=== PATIENT | female | born 1940 | race Caucasian/White ===

== ENCOUNTER 2017-11-11 21:53 | Emergency (ER) | payer OTHER ==
[~2017-11-11] VITALS: Ht 160 cm; Wt 53.5 kg
--- NOTE | ~2017-11-11 | EKG ---
[place] [address] [facility] [place] [address] ELECTROCARDIOGRAM REPORT Name: SYLVIA BLANCO [id number] Admission: 11/11/17 Attend Phys: Discharge: 11/11/17 Date of : 38 Report #: [id number] THIS REPORT FOR: //name// [facility] ED Test Date: 2017-11-11 Test Time: 22:25:09 Pat Name: SYLVIA BLANCO Department: Room: Gender: F Paint Department Supervisor: JOSE : 1940 Requested By: Jn Abraham Order Number: [id number] MD: Mikey Conley Measurements Intervals [place] Rate: 76 P: [place]: QRS: -21 QRSD: 96 T: 213 QT: 328 QTc: 369 Interpretive Statements Atrial fibrillation Ventricular premature complex Nonspecific ST and T wave abnormality Baseline wander in lead(s) III,aVL Compared to ECG 11/02/2013 09:20:32 Ventricular premature complex(es) now present nonspecific change in the ST and T-wave segments Electronically Signed On 11-12-2017 10:33:18 CDT by Mikey Conley [email or web address] <ELECTRONICALLY SIGNED> By: Mikey Conley MD, [facility] 11/12/17 1033 2225 2225 Mikey Conley MD, [facility] /EPI
[~2017-11-11 21:53] MED LIST: ALPRAZOLAM 0.50.5 M1 PO; AZITHROMYCIN 2250 MG PO; CARVEDILOL3.125 MG; CEPHALEXIN 500500 M1 PO; COUMADIN 2 MG TA2 M1 PO; COUMADIN 4 MG TA4 M1 PO; COZAAR100 MG PO; CRESTOR10 MG PO; DILTIAZEM 24HR180 M2 PO; DILTIAZEM 24HR180 MG; DUONEB 2.5-0.5 M3 ML IH; HYDROCHLOROTH12.5 MG PO; KLOR-CON 1010 MEQ PO; OCUVITE TABLET1 EAC1 PO; PEPCID20 MG PO; PROAIR HFA8.5 GM IH; PROAIR HFA8.5 GM INH; XALATAN2.5 ML OP
[2017-11-11 22:38] LABS: URINE BILIRUBIN NEGATIVE (Negative); URINE BLOOD 2+ (Negative); URINE CLARITY SL CLOUDY; URINE COLOR YELLOW; URINE GLUCOSE-RANDOM* NEGATIVE (Negative); URINE KETONES 1+ (Negative); URINE LEUKOCYTES 2+ (Negative); URINE NITRITE NEGATIVE (Negative); URINE PROTEIN (DIPSTICK) TRACE (Negative); URINE UROBILINOGEN 0.2 E.U./dl (0.2-1.0)
[2017-11-11 22:39] LABS: ABSOLUTE NEUTROPHILS 8.9 thou/uL (1.4-8.2); BASOPHILS 0.3 % (0.0-2.0); EOSINOPHILS 0.2 % (0.0-3.0); HEMATOCRIT 37.4 % (37.0-47.0); HEMOGLOBIN 12.7 gm/dL (12.0-15.0); LYMPHOCYTES 2.1 % (24.0-44.0); MCH 29.4 pg (26.0-34.0); MCV 86.5 fL (80.0-100.0); PLATELET COUNT 207 thou/uL (150-400); POLYS 90.4 % (36.0-66.0); RBC 4.32 mil/uL (4.20-5.00); WBC 9.8 thou/uL (4.0-11.0)
[2017-11-11 22:53] LABS: ANION GAP 9 mmol/L (7-16); BUN 16 mg/dL (7-18); CALCIUM 8.7 mg/dL (8.5-10.1); CHLORIDE 100 mmol/L (98-107); CO2 24 mmol/L (21-32); GLUCOSE 219 mg/dL (74-106); POTASSIUM 3.1 mmol/L (3.5-5.1); SODIUM 133 mmol/L (136-145)
[2017-11-11 22:59] LABS: CRYSTALS None Seen /LPF (None Seen); SQUAMOUS 4-10 Moderate /LPF (0-3)
[2017-11-11 23:00] LABS: BACTERIA 1-9 Few /HPF (None Seen); HYALINE CASTS 0-3 Few /LPF (None Seen); URINE RBC 0-2 Rare /HPF (0-2); WBC CLUMPS Rare (None Seen)
[2017-11-11 23:02] LABS: TROPONIN-I < 0.04 ng/mL (<0.06)
[2017-11-11] MEDS ORDERED: KLOR-CON20 ME1 PO (23:33)
== END 2017-11-11 23:58 | disposition home or self-care (01) ==
LOC: ER 21:53
PROVIDERS: Nurse Practitioner
DX: N39.0 Urinary tract infection, site not specified (principal); E87.6 Hypokalemia; I10 Essential (primary) hypertension; Z88.2 Allergy status to sulfonamides

== ENCOUNTER 2018-09-06 19:09 | Emergency (ER) | payer OTHER ==
[~2018-09-06] VITALS: Ht 160 cm; Wt 54.4 kg
[~2018-09-06 19:09] MED LIST changes: +KLOR-CON20 ME1 PO
[2018-09-06 20:26] LABS: HEMOGLOBIN 8.6 gm/dL (12.0-15.0); MCV 87.1 fL (80.0-100.0)
[2018-09-06 20:29] LABS: HEMATOCRIT 24.1 % (37.0-47.0); MCHC 35.5 g/dL (28.0-37.0); PLATELET COUNT 115 thou/uL (150-400); RBC 2.76 mil/uL (4.20-5.00); RDW 21.4 % (10.5-14.5)
[2018-09-06 20:33] LABS: WBC 1.7 thou/uL (4.0-11.0)
[2018-09-06 20:33] LABS: URINE BILIRUBIN NEGATIVE (Negative); URINE BLOOD 2+ (Negative); URINE CLARITY CLEAR; URINE COLOR YELLOW; URINE GLUCOSE-RANDOM* NEGATIVE (Negative); URINE KETONES NEGATIVE (Negative); URINE LEUKOCYTES-REFLEX 3+ (Negative); URINE NITRITE-REFLEX NEGATIVE (Negative); URINE PROTEIN (DIPSTICK) TRACE (Negative); URINE UROBILINOGEN 0.2 E.U./dl (0.2-1.0)
[2018-09-06 20:39] LABS: CALCIUM 8.6 mg/dL (8.5-10.1); CREATININE 0.5 mg/dL (0.6-1.0); POTASSIUM 3.7 mmol/L (3.5-5.1)
[2018-09-06 20:42] LABS: AMORPHOUS PHOSPHATES Many /LPF (None Seen); COARSE GRANULAR CASTS 0-3 Few /LPF (None Seen); MUCUS 0-3 Light strn/LPF (None Seen); SQUAMOUS >10 Many /LPF (0-3); WBC CLUMPS Few (None Seen)
[2018-09-06 20:46] LABS: ALBUMIN 2.4 g/dL (3.4-5.0); TOTAL BILIRUBIN 0.7 mg/dL (<0.1-1.0)
[2018-09-06 21:00] LABS: ABSOLUTE NEUTROPHILS 1.2 thou/uL (1.4-8.2)
[2018-09-06 21:01] LABS: ANISOCYTOSIS 2+
[2018-09-06 21:02] LABS: PLATELET ESTIMATE DECREASED; POLYCHROMASIA OCCASIONAL
[2018-09-06] MEDS ORDERED: LEVAQUIN 500 M500 M1 PO (21:02)
[2018-09-06 22:09] VITALS: BP 157/53
--- NOTE | 2018-09-07 08:18 | EKG ---
[place] [address] [facility] [address] ELECTROCARDIOGRAM REPORT Name: SYLVIA BLANCO Room #: [facility]#: [id number] Admission: 09/06/18 Attend Phys: Discharge: 09/06/18 Date of : 38 Report #: [id number] THIS REPORT FOR: //name// [facility] ED Test Date: 2018-09-06 Test Time: 19:44:32 Pat Name: SYLVIA BLANCO Department: Room: Gender: F Outcomes Specialist: FRED : 1940 Requested By: Tyler Guevara Order Number: [id number] MD: Mikey Conley Measurements Intervals [place] Rate: 91 P: [place]: QRS: -18 QRSD: 85 T: 55 QT: 341 QTc: 420 Interpretive Statements Atrial fibrillation Poor R wave progression Compared to ECG 11/11/2017 22:25:09 Myocardial infarct finding now present Ventricular premature complex(es) no longer present ST (T wave) deviation no longer present Electronically Signed On 09-07-2018 8:17:52 SOILS TECHNICIAN by Mikey Conley [email or web address] <ELECTRONICALLY SIGNED> By: Mikey Conley MD, [facility] 09/07/18 [id number] Mikey Conley MD, [facility] /EPI
== END 2018-09-06 22:10 | disposition home or self-care (01) ==
LOC: ER 19:09
PROVIDERS: Emergency Medicine
DX: N39.0 Urinary tract infection, site not specified (principal); I10 Essential (primary) hypertension; R06.02 Shortness of breath; F41.9 Anxiety disorder, unspecified; Z95.5 Presence of coronary angioplasty implant and graft; Z85.89 Personal history of malignant neoplasm of other organs and systems; Z88.2 Allergy status to sulfonamides; Z88.8 Allergy status to other drugs, medicaments and biological substances

== ENCOUNTER 2018-11-10 20:59 | Inpatient (IN) | payer OTHER ==
[~2018-11-10] VITALS: Ht 160 cm; Wt 53.8 kg
[~2018-11-10 20:59] MED LIST changes: +LEVAQUIN 500 M500 M1 PO
[2018-11-10 21:01] VITALS: BP 187/136
[2018-11-10 22:23] LABS: URINE BILIRUBIN NEGATIVE (Negative); URINE BLOOD 1+ (Negative); URINE CLARITY CLEAR; URINE COLOR YELLOW; URINE GLUCOSE-RANDOM* NEGATIVE (Negative); URINE KETONES NEGATIVE (Negative); URINE NITRITE-REFLEX NEGATIVE (Negative); URINE PROTEIN (DIPSTICK) NEGATIVE (Negative); URINE SPECIFIC GRAVITY 1.015 (1.005-1.035); URINE UROBILINOGEN 0.2 E.U./dl (0.2-1.0)
[2018-11-10 22:27] LABS: URINE LEUKOCYTES-REFLEX 1+ (Negative)
[2018-11-10 22:31] LABS: BACTERIA-REFLEX >30 Many /HPF (None Seen); CASTS None Seen /LPF (None Seen); CRYSTALS None Seen /LPF (None Seen); MUCUS None Seen strn/LPF (None Seen); SQUAMOUS None Seen /LPF (0-3); URINE RBC 3-10 Few /HPF (0-2); URINE WBC-REFLEX 6-15 Few /HPF (0-5)
[2018-11-10 22:41] LABS: HEMATOCRIT 33.5 % (37.0-47.0); HEMOGLOBIN 11.4 gm/dL (12.0-15.0); MCH 29.5 pg (26.0-34.0); MCHC 33.9 g/dL (28.0-37.0); MCV 86.9 fL (80.0-100.0); PLATELET COUNT 255 thou/uL (150-400); RBC 3.86 mil/uL (4.20-5.00); RDW 13.8 % (10.5-14.5); WBC 12.4 thou/uL (4.0-11.0)
[2018-11-10 22:57] LABS: ANION GAP 7 mmol/L (7-16); BUN 22 mg/dL (7-18); CALCIUM 9.3 mg/dL (8.5-10.1); CHLORIDE 94 mmol/L (98-107); CO2 30 mmol/L (21-32); CREATININE 0.6 mg/dL (0.6-1.0); GLUCOSE 135 mg/dL (74-106); POTASSIUM 3.6 mmol/L (3.5-5.1); SODIUM 131 mmol/L (136-145)
[2018-11-10 23:06] LABS: ALBUMIN 2.9 g/dL (3.4-5.0); MAGNESIUM 1.4 mg/dL (1.8-2.4); SGOT 21 U/L (15-37); SGPT 27 U/L (30-65); TOTAL BILIRUBIN 0.4 mg/dL (<0.1-1.0); TOTAL PROTEIN 6.8 g/dL (6.4-8.2); TROPONIN-I <0.06 ng/mL (<0.06)
[2018-11-10 23:35] LABS: LARGE PLATELETS OCCASIONAL
[2018-11-11] VITALS (10 sets, daily range): BP systolic 125–187; BP diastolic 54–87
--- NOTE | 2018-11-11 04:50 | NUR ---
PT ARRIVED FROM ED 0130. PT ALERT AND ORIENTED. ASSESSMENT AND ADMISSION COMPLETE. PT DENIES N/V AT THIS TIME. PT REPORTS PAIN IN BACK, SEE EMAR. L CHEST LANETTE CATH DRESSING C/D/I. PEG TUBE IN PLACE AND FLUSHED. VSS. PT CALL LIGHT AND PERSONAL BELONINGS WITHIN REACH. WILL CONTINUE POC UNTIL EOS.
--- NOTE | 2018-11-11 08:36 | EKG ---
[address] [address] ELECTROCARDIOGRAM REPORT Name: SYLVIA BLANCO Room #: 352-P ADM IN M.R.#: [id number] ������������������ Admission: 11/11/18 ������������������ Attend Phys: Sergey Zuñiga MD Discharge: ������������������ Date of : 38 Report #: [id number] ����������������������������������������������������������������� [id number] THIS REPORT FOR: //name// [facility] ED Test Date: 2018-11-10 Test Time: 21:49:31 Pat Name: SYLVIA BLANCO Department: Room: [facility] Gender: F Ocean Freight Agent: KARLY : 1940 Requested By: Aylin Lima Order Number: [id number] MD: Shaun Pierce Measurements Intervals [place] Rate: 104 P: [place]: QRS: -27 QRSD: 86 T: 38 QT: 346 QTc: 455 Interpretive Statements Atrial fibrillation Ventricular premature complex Borderline left axis deviation Anterior infarct, old Compared to ECG 09/06/2018 19:44:32 Ventricular premature complex(es) now present Myocardial infarct finding now present Poor R-wave progression no longer present Electronically Signed On 11-11-2018 8:36:12 CDT by Shaun Pierce [email or web address] ��������������������������������������������� <ELECTRONICALLY SIGNED> ���������������������������������������� By: Shaun Pierce MD ��������������������������������������������� 11/11/18 0836 [id number] [id number] Shaun Pierce MD /EPI
--- NOTE | 2018-11-11 10:41 | NUR ---
ASSESSMENT: CM REVIEWED CHART AND MET WITH PATIENT AT THE BEDSIDE. PT WAS ADMITTED DUE TO UTI. PT REPORTS SHE LIVES IN A HOUSE ALONE BUT STATES SHE HAS RECENTLY BEEN STAYING WITH HER DAUGHTER JOVANI WHO CAN HELP TAKE CARE OF HER. PT REPORTS SHE USES A CANE AND WALKER FOR AMBULATION. PT REPORTS SHE PLANS ON STAYING WITH JOVANI AT DISCHARGE. PT REPORTS JOVANI HELPS HER WITH SHOWERS AND HAS A GRAB BAR AND SHOWER CHAIR. PT REPORTS SHE RECENTLY WAS IN SERVICES WITH [facility] BUT IS NO LONGER. CM DISCUSSED ROLE. PT/OT EVALS STILL PENDING. IF PATIENT IS NEEDING HH PATIENT AND HER DAUGHTER PREFER TO USE [facility] AGAIN. CM SPOKE WITH PATIENTS DAUGHTER JOVANI WHO SHE LIVES WITH AND UPDATED WITH INFORMATION. CM WILL CONTINUE TO FOLLOW TO ASSIST NEEDED.
[2018-11-11 11:48] LABS: INR 2.1; PROTIME 22.1 Seconds (9.3-11.4)
--- NOTE | 2018-11-11 14:59 | NUR ---
Nutrition: Pt s usual tube feeding regimen is bolus 4 cans Isosource 1.5/day. Hospital equivalent is Jevity 1.5, agree with 4 cans/daily to meet needs. REC 200 mL H20 bolus following each can.
--- NOTE | 2018-11-11 19:51 | NUR ---
PT ALERT AND ORIENTED TIMES FOUR. VSS, 97%RA. C/O PAIN MEDICATIONS GIVEN PER PEG THIS EVENING. PT UP TO BSC WITH ASSIST OF TWO. PT REFUSED VIDEO SWALLOW TODAY. FAMILY AT BEDSIDE. WILL CONTINUE TO MONITOR.
--- NOTE | 2018-11-12 02:36 | NUR ---
FOLLOWING POC WITH IVPB ANTIBIOTICS. PT UP TO BSC X2 ASSIST, PT VERY WEAK AND WOBBLING. LEAD CAREGIVER MADE PT NPO UNTIL VIDEO SWALLOW STUDY DONE, WHILE PT IS TRYING EVERYWAY TO GET SOMETHING TO DRINK ORALLY. CONSULTED LEAD CAREGIVER AGAIN TO SEE IF IT IS ALRIGHT TO PT OWN TUBE FEEDING CANS OF ISO 1.5. PT IS STILL CONFUSED AND FLAT EFFECT. HOURLY ROUNDING.
[2018-11-12 04:47] VITALS: BP 145/68
[2018-11-12 07:18] LABS: HEMATOCRIT 31.3 % (37.0-47.0); HEMOGLOBIN 10.7 gm/dL (12.0-15.0); MCH 29.8 pg (26.0-34.0); MCHC 34.1 g/dL (28.0-37.0); MCV 87.5 fL (80.0-100.0); RBC 3.57 mil/uL (4.20-5.00); RDW 14.4 % (10.5-14.5); WBC 9.5 thou/uL (4.0-11.0)
[2018-11-12 07:19] VITALS: BP 135/65
[2018-11-12 07:24] LABS: CALCIUM 9.6 mg/dL (8.5-10.1); CREATININE 0.6 mg/dL (0.6-1.0); MAGNESIUM 1.7 mg/dL (1.8-2.4); POTASSIUM 3.1 mmol/L (3.5-5.1)
[2018-11-12 07:48] LABS: ABSOLUTE NEUTROPHILS 7.7 thou/uL (1.4-8.2)
[2018-11-12 07:49] LABS: PLATELET COUNT 270 thou/uL (150-400); PLATELET ESTIMATE NORMAL
[2018-11-12 07:50] LABS: LARGE PLATELETS RARE
--- NOTE | 2018-11-12 08:55 | HC ---
[facility] [place] [address] CONSULTATION Name: SYLVIA BLANCO Room #: 352-P [facility] IN ..#: [id number] Admission: 11/11/18 ������������������ Attend Phys: Sergey Zuñiga MD Discharge: ������������������ Date of : 38 Report #: [id number] THIS REPORT FOR: //name// CC: FAM physician/PCP Sergey Zuiñga DATE OF SERVICE: 11/11/2018 ATTENDING PHYSICIAN: Dr. Sergey Zuñiga. REASON FOR CONSULTATION: Recurrent UTIs, weakness. HISTORY OF PRESENT ILLNESS: A 78-year-old white woman brought to the Emergency Room by her daughter with history of increasing weakness and recurrent UTI manifested by frequent urination and some flank pain. The patient recently treated with Keflex, subsequently with Levaquin. The patient voices no major complaints today. She has chronic atrial fibrillation, is on warfarin for days. 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 She still has Port-A-Cath and was declared to be cancer-free. The patient is known to have myocardial infarction by EKG. Her admission troponin was normal. She had a percutaneous gastrostomy, electrolyte imbalance, hypomagnesemia. DRUG ALLERGIES: SULFA, PREDNISONE. MEDICATIONS: The patient is on treatment with Rocephin 1 g IV daily, pantoprazole, normal saline IV, warfarin 4 mg p.o. daily, insulin lispro per sliding scale, p.r.n. glucose, glucagon, sublingual nitroglycerin p.r.n., p.r.n. intravenous ondansetron b.i.d., docusate 100 mg, lactobacillus acidophilus 1 capsule daily, diltiazem CD 240 mg daily, losartan 100 mg p.o. daily, alprazolam 0.5 mg t.i.d. p.r.n., acetaminophen 650 q.i.d. p.r.n. SOCIAL HISTORY: See H and P, old records. REVIEW OF SYSTEMS: See H and P, old records. Note is made the patient had previous surgical intervention by Dr. Coello, right hip femoral neck fracture requiring pinning on 10/2013. PHYSICAL EXAMINATION: GENERAL: This is a well-developed, not toxic looking, not septic looking woman. VITAL SIGNS: Temperature maximum 99.8 on admission, pulse 119, BP 187/136, respirations 22. BP goes down to 145/71 today. HEENMT: Pupils reactive. Mouth edentulous. NECK: Supple. CHEST: Revealed left-sided Port-A-Cath, the site looks fine. LUNGS: Clear to auscultation. [address] [address] CONSULTATION Name: SYLVIA BLANCO Room #: 352-P ADM IN M.R.#: [id number] Admission: 11/11/18 ������������������ Attend Phys: Sergey Zuñiga MD Discharge: ������������������ Date of : 39 Report #: [id number] HEART: Irregularly irregular. ABDOMEN: Soft, no masses or megaly. Percutaneous gastrostomy in place. PELVIC AND RECTAL: Deferred. EXTREMITIES: Normal. NEUROLOGIC: Grossly within normal limits. LABORATORY DATA: Revealed the followings abnormal. Sodium 131, chloride 94, BUN 22, glucose 135, magnesium 1.4, albumin low at 2.9 g/dL, Protime 22.1, INR 2.1. WBC 12,400, hemoglobin 11.4 g/dL, platelets are normal at 255,000. The white blood cell count differential reveals 77% segmented neutrophil. The urinalysis revealed 1+ blood, pyuria and hematuria as well as bacteriuria noted. Cultures are pending at the time of this dictation. EKG revealed possible new evidence of myocardial infarction. The admission troponin was normal. She had chronic atrial fibrillation. Chest x-ray revealed the left-sided Port-A-Cath. No acute cardiopulmonary process. ASSESSMENT: 1. Recurring urinary tract infections -- cystitis. 2. Weakness secondary to recurring urinary tract infections -- cystitis. 3. Hyponatremia, hypomagnesemia. 4. Abnormal EKG with atrial fibrillation and possible old myocardial infarction. 5. Atherosclerotic disease of the abdominal aorta. 6. 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 7. History of laryngeal cancer, status post radiation and chemotherapy, cured. RECOMMENDATIONS: For the time being, let us continue with Rocephin. I am almost certain will cover the isolated organism since she was not said to have resistant organism. I suspect oral antibiotics may be in order in 24-48 hours. Replace magnesium. Control hypertension. Dr. Sergey Zuñiga, thank you very much for requesting my suggestions in the care of your patient. ��������������������������������������������� <ELECTRONICALLY SIGNED> ���������������������������������������� By: Miguelangel Pierce MD ��������������������������������������������� 11/12/18 0855 [id number] [id number] Miguelangel Pierce MD /nt
[2018-11-12 10:01] LABS: INR 1.9; PROTIME 20.2 Seconds (9.3-11.4)
[2018-11-12 11:25] VITALS: BP 135/57
[2018-11-12] MEDS ORDERED: PROBIOTIC1 EAC1 PO (15:03)
[2018-11-12] MEDS ORDERED: PEDIA-LAX50 MG/15 M PER TUBE (15:03)
[2018-11-12] MEDS ORDERED: OMEPRAZOLE 20 M20 M1 PER TUBE (15:03)
--- NOTE | 2018-11-12 15:49 | NUR ---
PATIENT SEEN FOR REHAB CONSULT BY DANIEL MEMBRENO NP WITH DR. CAMILLE ARDON. PATIENT MEETS CRITERIA FOR ACUTE REHAB STAY. PATIENT MAY BE ADMITTING OVER THE WEEKEND. WHEN PATIENT IS APPROPRIATE FOR DISCHARGE, PLEASE CALL EMILY ALVAREZ, AT [phone]. LINE STAKER WILL FACILITATE 5N ADMISSION. THANK YOU FOR THIS REFERRAL.
--- NOTE | 2018-11-12 18:12 | NUR ---
Assumed care of Pt at 0700. Pt alert and oriented x3 drowsy in no acute distress. video swallow today - aspirates on thin liquids - ST rec honey thickened/full liquid diet. pt complaining of chronic back pain - good relief with tylenol. pt says she feels too tired to work with physical therapy. family present at bedside. mucinex ordered for congestion. pt progressing toward poc goals.
[2018-11-12 20:00] VITALS: BP 155/67
[2018-11-13 04:00] VITALS: BP 182/70
--- NOTE | 2018-11-13 05:19 | NUR ---
PATIENT IS PROGRESSING IN HER CARE PLAN. VITAL SIGNS STABLE WITH PATIENT HAVING NO COMPLAINTS OF PAIN OR NAUSEA. PATIENT IS FULLY ORIENTED BUT FORGETFUL, SHE DOES CALL APPROPRIATELY FOR NEEDS. TUBE FEED PROVIDED PER DR ORDER WITH PATIENT FRUSTRATED WITH THICKENED LIQUIDS. PATIENT IS ASPIRATION RISK. URINARY FREQUENCY NOTED WITH PATIENT TURNED AND PROVIDED SKIN CARE FREQUENTLY. PATIENT IS EXPECTED TO DISCHARGE TO REHAB SOON. CONTINUE PLAN OF CARE.
[2018-11-13 05:29] LABS: INR 1.8; PROTIME 18.5 Seconds (9.3-11.4)
[2018-11-13 05:56] LABS: MAGNESIUM 1.5 mg/dL (1.8-2.4); POTASSIUM 3.2 mmol/L (3.5-5.1)
[2018-11-13 07:35] VITALS: BP 169/73
[2018-11-13 12:33] LABS: MAGNESIUM 2.1 mg/dL (1.8-2.4); POTASSIUM 3.8 mmol/L (3.5-5.1)
[2018-11-13 13:51] LABS: HEMATOCRIT 33.2 % (37.0-47.0); HEMOGLOBIN 11.1 gm/dL (12.0-15.0); MCH 29.4 pg (26.0-34.0); MCHC 33.6 g/dL (28.0-37.0); MCV 87.5 fL (80.0-100.0); RBC 3.79 mil/uL (4.20-5.00); RDW 14.2 % (10.5-14.5); WBC 11.2 thou/uL (4.0-11.0)
[2018-11-13 13:58] LABS: CALCIUM 9.3 mg/dL (8.5-10.1); CREATININE 0.6 mg/dL (0.6-1.0); POTASSIUM 3.7 mmol/L (3.5-5.1)
[2018-11-13 15:26] VITALS: BP 155/81
[2018-11-13 19:32] VITALS: BP 163/75
[2018-11-14 04:11] VITALS: BP 161/84
[2018-11-14 04:31] LABS: HEMATOCRIT 32.4 % (37.0-47.0); HEMOGLOBIN 11.1 gm/dL (12.0-15.0); MCHC 34.2 g/dL (28.0-37.0); MCV 87.6 fL (80.0-100.0); RBC 3.7 mil/uL (4.20-5.00); RDW 14.2 % (10.5-14.5); WBC 9.1 thou/uL (4.0-11.0)
[2018-11-14 04:53] LABS: CALCIUM 9.7 mg/dL (8.5-10.1); CREATININE 0.6 mg/dL (0.6-1.0); MAGNESIUM 1.7 mg/dL (1.8-2.4); POTASSIUM 3.5 mmol/L (3.5-5.1)
--- NOTE | 2018-11-14 05:58 | NUR ---
PATIENT IS SLOWLY PROGRESSING IN HER CARE PLAN. VITAL SIGNS STABLE WITH PATIENT HAVING NO COMPLAINTS OF PAIN OR NAUSEA. ORIENTED BUT FORGETFUL, PATIENT IS ABLE TO CALL FOR NEEDS APPROPRIATELY. BREATHING STABLE. TUBE FEEDING PROVIDED PER ORDER. PATIENT IS ASPIRATION RISK AND VERY UPSET AT STAFF FOR NOT PROVIDING THIN LIQUIDS. NURSE HAS MADE MANY ATTEMPTS TO PROVIDE ORAL CARE FOR PATIENT IN ORDER TO SATISFY HER. LESS FREQUENT URINATION THIS SHIFT WITH MORE URINE PROVIDED. POST VOID RESIDUALS LOW. PATIENT WAS GIVEN BED BATH THIS MORNING WITH NEW LINENS PROVIDED. CONTINUE PLAN OF CARE.
[2018-11-14 07:52] VITALS: BP 169/97
[2018-11-14 08:41] LABS: INR 1.6; PROTIME 16.8 Seconds (9.3-11.4)
[2018-11-14 11:12] VITALS: BP 149/74
--- NOTE | 2018-11-14 16:19 | NUR ---
Assumed care of Pt at 0700. pt aox4, very forgetful about recent events. in no acute distress. complaining about recent dietary changes - namely thickened fluids. tolerate tube feedings w/ minimal residuals. sitting in chair during meals. up w/ mod assist. cxr showing left upper infiltrates. chronic back pain well controlled with current med regimen. mag supplemented per order. family at bedside throughout shift. anticipate d/c to 5N/Rehab 1-2 days. pt progressing toward poc goals.
[2018-11-14 16:37] VITALS: BP 157/77
[2018-11-14 19:48] VITALS: BP 137/68
--- NOTE | 2018-11-15 03:18 | NUR ---
PATIENT IS SLOWLY PROGRESSING IN CARE PLAN. VITAL SIGNS STABLE WITH PATIENT HAVING NO COMPLAINTS OF PAIN OR NAUSEA. BREATHING STABLE EVIDENCED BY SPOT OXYGENATION CHECKS. PATIENT IS ORIENTED BUT FORGETFUL AND CAN CALL FOR NEEDS. SHE HAS EXPRESSED ANXIETY WHICH HAS BEEN TREATED EFFECTIVELY. TUBE FEED AND FLUSH PROVIDED PER ORDER. PATIENT HAS SHOWN LESS URINARY FREQUENCY THAN PREVIOUS DAYS. UP MULTIPLE TIMES TO BEDSIDE COMMODE WITH ASSISTANCE INCIDENT FREE. NURSE HAS FREQUENTLY MOVED PATIENT AND HAS GUARDED AGAINST SKIN BREAKDOWN. GREAT CARE WAS TAKEN TO MAKE SURE PATIENT IS NOT ASPIRATING PER ORDER. CONTINUE PLAN OF CARE.
[2018-11-15 04:34] VITALS: BP 156/76
[2018-11-15 05:49] LABS: HEMATOCRIT 33.6 % (37.0-47.0); HEMOGLOBIN 11.3 gm/dL (12.0-15.0); MCH 29.3 pg (26.0-34.0); MCHC 33.5 g/dL (28.0-37.0); MCV 87.4 fL (80.0-100.0); RBC 3.84 mil/uL (4.20-5.00); RDW 14.4 % (10.5-14.5); WBC 8.7 thou/uL (4.0-11.0)
[2018-11-15 05:57] LABS: CALCIUM 9.8 mg/dL (8.5-10.1); CREATININE 0.6 mg/dL (0.6-1.0); INR 2.2; POTASSIUM 3.4 mmol/L (3.5-5.1); PROTIME 23.2 Seconds (9.3-11.4)
[2018-11-15 07:31] VITALS: BP 154/76
--- NOTE | 2018-11-15 12:44 | NUR ---
ON-GOING ASSESSMENT: wilder reviewed chart. PT IS TO DISCHARGE TO ACUTE REHAB TODAY. WILDER SPOKE WITH LIASON FROM WHO REPORTS THEY CAN ACCEPT HER TODAY. WILDER CONTACTED PTS DAUGHTER DELROY TO NOTIFY AND LEFT A VM.
[2018-11-15] MEDS ORDERED: LEVAQUIN 500 M500 M3 PO (14:55)
--- NOTE | 2018-11-15 15:36 | NUR ---
PT TRANSFERRING TO N..REPORT CALLED TO SR OLIVA. DTR DELROY NOTIFIED OF MOVE...
== END 2018-11-15 16:00 | DRG 871 ==
LOC: ER 20:59 → EROBS 11-11 00:33 → 3W 11-11 00:33
PROVIDERS: Nurse Practitioner; Nurse Practitioner Family; Physician Assistant; Student in an Organized Health Care Education/Training Program; ADMIT Internal Medicine
DX: A41.9 Sepsis, unspecified organism (principal); J69.0 Pneumonitis due to inhalation of food and vomit; E44.1 Mild protein-calorie malnutrition; E87.1 Hypo-osmolality and hyponatremia; N30.90 Cystitis, unspecified without hematuria; I70.0 Atherosclerosis of aorta; I48.91 Unspecified atrial fibrillation; E83.42 Hypomagnesemia; I10 Essential (primary) hypertension; F41.9 Anxiety disorder, unspecified; M62.84 Sarcopenia; Z86.73 Personal history of transient ischemic attack (TIA), and cerebral infarction without residual deficits; Z68.21 Body mass index [BMI] 21.0-21.9, adult; Z92.21 Personal history of antineoplastic chemotherapy; Z92.3 Personal history of irradiation; Z79.01 Long term (current) use of anticoagulants; Z93.1 Gastrostomy status; Z85.818 Personal history of malignant neoplasm of other sites of lip, oral cavity, and pharynx; Z85.89 Personal history of malignant neoplasm of other organs and systems; Z79.2 Long term (current) use of antibiotics; Z88.2 Allergy status to sulfonamides; Z88.8 Allergy status to other drugs, medicaments and biological substances; Z87.891 Personal history of nicotine dependence; Z79.899 Other long term (current) drug therapy
CPT/HCPCS: 10080

== ENCOUNTER 2018-11-12 15:59 | Inpatient (IN) | payer OTHER ==
[~2018-11-12] VITALS: Ht 160 cm; Wt 53.1 kg
--- NOTE | ~2018-11-12 | H ---
[facility] [place] [address] HISTORY AND PHYSICAL Name: SYLVIA BLANCO Room #: 503-P ADM IN M.R.#: [id number] Admission: 11/15/18 ������������������ Attend Phys: North Martinez MD Discharge: ������������������ Date of : 39 Report #: [id number] THIS REPORT FOR: //name// CC: North Martinez [facility] physician/PCP DATE OF SERVICE: 11/15/2018 HISTORY AND PHYSICAL/POST-ADMISSION PHYSICIAN EVALUATION: HISTORY OF PRESENT ILLNESS: The patient is admitted for acute in-hospital inpatient rehabilitation. She is a 71-year-old female with a prior history of throat cancer, finished chemo and radiation 2 months ago. Has a PEG tube. Does bolus tube feedings. She is on thickened liquids, honey thick pureed, speech therapy involved. She was noted to have a recurrent urinary tract infection. She has been diagnosed with medical complexity with generalized debilitation and has been admitted for acute in-hospital inpatient rehabilitation. Please see the full history and physical dictation as noted by Holley Fair. Please see the note. PAST MEDICAL HISTORY, PAST SURGICAL HISTORY, HABITS, ALLERGIES, MEDICATIONS: Please see the medication list. This includes vitamins, herbals, and supplements. SOCIAL HISTORY: She has a single point cane in the front wheeled walker at home. She has been living at her daughter's house since June when she started cancer treatment. REVIEW OF SYSTEMS: Did not offer any current complaints of chest pain, shortness of breath, abdominal discomfort. She does have some anxiety with her swallowing and speech therapy is following. No chest pain, shortness of breath, abdominal discomfort focal extremity pain complaints. Has generalized weakness that is noted. PHYSICAL EXAMINATION: GENERAL: The patient was seen earlier in no obvious distress. VITAL SIGNS: Temperature 97.9, pulse 99, respirations 14, blood pressure 171/68. HEENT: Appeared to be benign. CHEST: Sounded clear with some decreased breath sounds diffusely. CARDIAC: Regular rate and rhythm with extra beats. ABDOMEN: Bowel sounds positive, nontender. GENITOURINARY AND RECTAL: Deferred. NEUROLOGIC: She has functional range of motion of both upper extremities. Strength is grade 3+ to 4-/5. DTRs are trace to 1. Lower extremities functional range of motion, strength is grade 4-/5. DTRs are trace to 1. [address] [address] HISTORY AND PHYSICAL Name: SYLVIA BLANCO Room #: [facility] IN .R.#: [id number] Admission: 11/15/18 ������������������ Attend Phys: North Martinez MD Discharge: ������������������ Date of : 39 Report #: [id number] ABDOMEN: She does have a PEG tube in place. She has been ambulating with min assist a short distance with a front-wheeled walker and transfers have been min assist. She does have some slurring or dysarthria of speech with some mild facial droop. ASSESSMENT: This IS a 78-year-old white female with the following problem list: 1. Medical complex with generalized debilitation. 2. Dysphagia. 3. Recurrent urinary tract infection. 4. History of throat cancer, status post chemoradiation with PEG tube. 5. Atrial fibrillation, on anticoagulation. 6. Protein calorie malnutrition. 7. Electrolyte abnormalities. 8. Hypertension. PLAN: The patient has been admitted for acute in-hospital inpatient rehabilitation. From a postadmission physician evaluation perspective, there are no relevant changes since the preadmission screening. Please see the above review of prior and current medical and functional conditions and comorbidities. Please see the patient's previous and current functional status. As far as risk of complications, the patient has multiple medical comorbidities as noted above. Initial plan of care involves the interdisciplinary acute inpatient rehabilitation program with goal of maximizing the patient's functional independence, so that she can hopefully return back to her prior living situation. Measurable functional goals would be for the patient to become modified independent with transfers, mobility, ADLs, so she can hopefully return back to her prior living situation. Prognosis is reasonably good with estimated length of stay probably at least 7-10 days, pending progress and potentially longer. Potential barriers would include from above noted comorbidities and decreased functional status. ��������������������������������������������� ���������������������������������������� By: ��������������������������������������������� 1039 1138 North Martinez MD /nt
--- NOTE | ~2018-11-12 | HC ---
[facility] [place] [address] CONSULTATION Name: SYLVIA BLANCO Room #: 503-P [facility] IN M.R.#: [id number] Admission: 11/15/18 ������������������ Attend Phys: North Martinez MD Discharge: ������������������ Date of : 38 Report #: [id number] THIS REPORT FOR: //name// CC: North Martinez [facility] physician/PCP DATE OF SERVICE: 11/26/2018 HISTORY OF PRESENT ILLNESS: The patient is seen in consultation regarding a recent CAT scan that showed a questionable pancreatic abnormality. 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 She was found to have a 2 cm hypopharyngeal mass in the fall of 2017 and began radiation therapy on 07/05/2018 for this HPV negative cancer in conjunction with weekly cisplatin. She received 5 doses [address] Mills at the [facility] office. Radiation therapy was supervised by Dr. Anish Murrieta. A PEG tube had been placed for nutrition and she had issues with nausea, vomiting and dehydration, requiring IV fluid replacement during her therapy. She has still been weak and recovering and recently living with the daughter. Prior to this, she was living independently in [place], [place]. PAST MEDICAL HISTORY: Significant for previous cataract and a cardiac catheterization. SOCIAL HISTORY: She is a reformed smoker, stopping a year ago. She is no longer drinking, but used to have beer or wine on a daily basis. ALLERGIES: PREDNISONE AND SULFA are listed. MEDICATIONS: As in the MFR. REVIEW OF SYSTEMS: Negative for any new suspicious palpable masses or pain. She has ongoing difficulties with speech along with weakness. She is still using her PEG tube as she has been unable to take adequate nutrition orally. Followup exam after completion of treatment showed no residual mass. PHYSICAL EXAMINATION: GENERAL: Shows a frail white female. She currently is afebrile. HEENT: Shows alopecia from recent cisplatin based chemotherapy. Her mouth is clear. NECK: Supple. CHEST: Clear. ABDOMEN: Shows a PEG tube. [facility] [address] [place] [address] CONSULTATION Name: SYLVIA BLANCO Room #: 503-P [facility] IN .R.#: [id number] Admission: 11/15/18 ������������������ Attend Phys: North Martinez MD Discharge: ������������������ Date of : 38 Report #: [id number] EXTREMITIES: No clubbing, cyanosis, edema. NEUROLOGIC: No focal localizing signs. Speech is difficult to understand. PSYCHIATRIC: Not agitated or confused. SKIN: Normal turgor. LYMPHATICS: No palpable supraclavicular adenopathy. HOSPITAL COURSE: Her PET scan shows a 15 mm pancreatic neck/head lesion, which is felt to be cystic. There was something seen in a 2016 [place] scan. I have asked that the recent PET CT scan from [facility] be clouded over for review and comparison. 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 PLAN: The PET in May did not show any avidity in the abdomen. I suspect this pancreatic lesion is chronic and benign and unlikely represents metastasis or new primary tumor. I have also ordered a CA 19-9 titers. I have discussed and reviewed these recommendations with the patient and her daughter who was also in attendance and will wait on these results. Thanks for allowing us to see her in consultation being asked to participate in her care. ��������������������������������������������� ���������������������������������������� By: ��������������������������������������������� 1440 0929 Catherine Otoole MD /nt
--- NOTE | ~2018-11-12 | PLAN ---
[facility] [place] [address] REHAB UNIT PLAN OF CARE Name: SYLVIA BLANCO Room #: 503-P ADM IN M.R.#: [id number] Admission: 11/15/18 ������������������ Attend Phys: North Martinez MD Discharge: ������������������ Date of : 38 Report #: [id number] THIS REPORT FOR: //name// CC: North Martinez [facility] physician/PCP DATE OF SERVICE: 11/17/2018 PROGRESS NOTE/OVERALL PLAN OF CARE SUBJECTIVE: The patient is seen back today in followup. She was in no distress. Last recorded temperature 98.2, pulse 92, respirations 16, blood pressure 151/72. No calf swelling. Transfers have been mod assist. Gait min assist, 70 feet front-wheeled walker. She is min assist with basic bed mobility. Lower body dressing is dependent. She is on a pureed diet with honey thickened liquids. She is also on PEG tube feedings. ASSESSMENT: 1. Medical complexity with generalized debilitation. 2. Dysphagia. 3. Recurrent urinary tract infection. 4. History of throat cancer, status post chemoradiation with PEG tube. 5. Atrial fibrillation, on anticoagulation. 6. Protein-calorie malnutrition. 7. Electrolyte abnormalities. 8. Hypertension. PLAN: The overall plan of care is based on the preadmission screen, post-admission physician evaluation and information garnered from therapy assessments. 1. Estimated length of stay is probably at least 7-10 days. 2. Medical prognosis is reasonably good. 3. Anticipated interventions includes the interdisciplinary acute inpatient rehabilitation program with PT, OT and speech, rehabilitation nursing assisting regarding medication management, skin care prophylaxis, bowel and bladder issues and nursing education. Case management is involved as well as the it sales consultant physicians and the rest of the interdisciplinary acute rehabilitation team. 4. Anticipated functional outcomes would be for the patient to become modified independent with transfers, mobility and ADLs at least at the walker level. 5. Discharge destination would be to return to her daughter's house. 6. Expected therapy by discipline includes PT, OT and speech 1 [place] [address] REHAB UNIT PLAN OF CARE Name: SYLVIA BLANCO Room #: 503-P [facility] IN ..#: [id number] Admission: 11/15/18 ������������������ Attend Phys: North Martinez MD Discharge: ������������������ Date of : 38 Report #: [id number] each five days a week throughout the duration of the acute inpatient rehabilitation stay. ��������������������������������������������� ���������������������������������������� By: ��������������������������������������������� 0835 1253 North Martinez MD /nt
[~2018-11-12 15:59] MED LIST changes: +OMEPRAZOLE 20 M20 M1 PER TUBE; +PEDIA-LAX50 MG/15 M PER TUBE; +PROBIOTIC1 EAC1 PO
[2018-11-15] MEDS ORDERED: LEVAQUIN 500 M500 M3 PO (14:55)
[2018-11-15 16:51] VITALS: BP 152/61
--- NOTE | 2018-11-15 19:55 | NUR ---
PT ADMITED FROM 3W/ ROOM 352 TO REHAB ROOM 503 AT 1600.PT IS HERE FOR MEDICAL COMPLEXITY WITH GENERAL DEBILITY WITH DYSPHAGIA, RECURRENT UTI (ON LEVAQUIN) HX OF THROAT CA S/P RADIATION AND CHEMO WITH PEG TUBE. PT A/OX4. NOTTAWASEPPI POTAWATOMI. VSS ON RA. CURRENT ORDER ISOSOURCE 1.5 ASH 4X/ DAY WITH 250CC FLUSHED AND MEDS GIVEN PER GTUBE. UP TO DINNING ROOM FOR DINNER. ATE 2O% DINNER, ON PUREED AND HONEY THICK LIQUID. DENIES SOB, N/V. HAS LOT OF SECRETION, THIN WHITE TEXTURE. SUCTIONING PRN. HAS MILD BACK PAIN, ANXIETY AND INSOMIA. NOTIFIED DR. GALLEGOS AND OBTAINED ORDER FOR PRN TYLENOL. MELATONIN FOR SLEEP AND PT HAS PRN XANAX. PATIENT EDUCATED ON UNIT SPECIFIC PRECAUTIONS INCLUDING FALL PRECAUTIONS. DISCUSSED ABOUT REHAB SCHEDULE. FALL PRECAUTIONS IN PLACE. PATIENT VERBALLY AGREED TO FALL PRECAUTIONS. WT 117.5LBS BY BED . PATIENT UP X1 ASSIST GB AND WALKER TO BATHROOM TOLERATE WELL. PT WAS CONSTIPATED FOR 3 DAYS WAS ON COUPLE LAXATIVES, HAD MODERATE UNFORMED BM THIS EVENING. ADMISSION ASSESSMENT COMPLETED. SKIN INTACT. ADMISSION ASSESSMENT DONE. DAUGHTER CAME BRING CLOTHES AND WITH PT AT THIS MOMENT. OFFERED SUPPORTIVE CARE. ENCOURAGED PT TO VOICE HER NEEDS. FAXED MED LIST TO PHARMACY. HANDOFF TO NIGHT NURSE TO CONTINUE TO FOLLOW UP WITH MEDS AND CALL FOR PHYSICIAN CONSULTS.
[2018-11-15 20:45] VITALS: BP 159/74
--- NOTE | 2018-11-16 02:47 | NUR ---
assumed care at approx 1900 evening 11/15. pt lying in bed with head of bed elevated at change of shift. daughter at bedside supportive of pts care. pt appropriate and cooperative. meds crushed and given thru peg tube without difficulty. daughter assisted with tube feeding as she has brought in pts isosource supply from home. pt appears to be sleeping soundly with hourly rounding checks. bed alarm on and call light in reach. will continue to monitor.
[2018-11-16 06:18] LABS: HEMATOCRIT 33.3 % (37.0-47.0); HEMOGLOBIN 11.1 gm/dL (12.0-15.0); MCH 29.2 pg (26.0-34.0); MCHC 33.2 g/dL (28.0-37.0); RBC 3.79 mil/uL (4.20-5.00); RDW 14.5 % (10.5-14.5); WBC 7.3 thou/uL (4.0-11.0)
[2018-11-16 06:23] LABS: INR 2.2; PROTIME 22.9 Seconds (9.3-11.4)
[2018-11-16 06:31] LABS: CALCIUM 10.1 mg/dL (8.5-10.1); CREATININE 0.6 mg/dL (0.6-1.0); POTASSIUM 3.3 mmol/L (3.5-5.1)
[2018-11-16 08:20] VITALS: BP 171/68
--- NOTE | 2018-11-16 11:02 | NUR ---
ASSUME PT CARE AT 0700. REPORTS SHE SLEPT GOOD WITH MELATONIN LAST NIGHT. ALERT AND ORIENTED X4. ABLE TO VOICE HERE NEEDS. B/P 171/68, HR 99. LOSARTAN AND AMINODARONE AND MORNING MEDS GIVEN PER GTUBE. EXTRA WATER GIVEN (450CC FLUSH)SINCE PT IS ON HONEY THICK. ISOSOURCE FEEDING 1X BOLUS GIVEN. WILL CONTINUE TO MONITOR B/P. UP TO DINNING ROOM, ON PUREED FOR BREAKFAST. ATE 25 % THIS AM. WITH SPEECH THERAPY. WILL START VITAL STEM TOMORROW. ENCOURAGED PT TO SWALLOW FREQUENTLY, SUCTION NEED. C/O LOWER BACK PAIN 5/10, PRN TYLENOL GIVEN. MAY ASK FOR VOLATERENE FOR CHRONIC BACK PAIN. PT HAS WEAK COUGH MAY ASK FOR MUCINEX. PT HAS DEGENRATIVE MACLULAR. WOULD LIKE TO BE ON OCUVITE SUPPLEMENT. OFFERED SUPPORTIVE CARE. ENCOURAGED PT VOICE HER NEEDS. LABS REVIEWED. PT FINISHED HER OT/ST/PT EVALUATION TODAY. SHE TOLERATED WELL. UP WITH A WALKER TO BATHROOM. HAD GOOD BM THIS AM. START ON AMOXICILLIN THIS AM FOR UTI. WILL CONTINUE FOR S/E. PT IS TIRED NOW. SLEEPING IN RECLINER. FALL PRECAUTION IN PLACE, CALL LIGHT WITHIN REACH. ENCOURAGED PT TO WALK TO DINNING ROOM FOR MEALS TIME. WILL CONTINUE TO MONITOR.
[2018-11-16 13:19] VITALS: BP 118/57
--- NOTE | 2018-11-16 13:33 | NUR ---
team meeting reccomendation: re team, will cont following as needed for dc needs.
--- NOTE | 2018-11-16 13:42 | NUR ---
ST RECEIVED RETURN CALL FROM DR BYRNES (ONCOLOGIST) AT 1600 ON 11/15/18 WITH CONSENT FOR VITAL STIM TREATMENTS WITH THE PATIENT.
[2018-11-16 21:02] VITALS: BP 151/72
--- NOTE | 2018-11-17 02:02 | NUR ---
ASSUMED CARE OF PT AT 1915. PT ALERT AND ORIENTED X4. UP IN CHAIR THROUGH THE EVENING, TRANSFERRED TO BED WITH ASSIST OF ONE. G-TUBE PATENT, MEDS AND FEEDING GIVEN WITHOUT DIFFICULTY. PT C/O MILD PAIN IN AREA OF G-TUBE WITH COUGH, AND C/O LOWER BACK PAIN. PT HAS APPEARED TO BE SLEEPING WHEN CHECKED ON HOURLY ROUNDS, AFTER MELATONIN GIVEN X1. FALL PRECAUTIONS IN PLACE.
[2018-11-17 06:43] LABS: PROTIME 30.8 Seconds (9.3-11.4)
[2018-11-17 07:30] VITALS: BP 140/53
--- NOTE | 2018-11-17 09:47 | NUR ---
ASSUMED CARES AT 0700. PT ALERT, ORIENTED*4, FORGETFUL. REMAINS MESA GRANDE. C/O MILD LOWER BACK PAIN AGGRAVATED BY LYING DOWN. REPOSITIONED Q2H AND NEEDED. VITALS REMAIN STABLE. PEG TUBE REMAINS INTACT AND PATENT, TUBE FEEDINGS ADMINISTERED PER ORDER WITH 250CC FLUSHES. PEG TUBE SITE CLEANED AND DRESSING CHANGED. SKIN REMAINS INTACT. MOUTH SWABBED AND SUCTIONING NEEDED. PT MAINTAINS HONEY THICK FLUIDS. UP WITH MIN ASSIST, GAITBELT AND WALKER. Q1H VISUAL CHECKS. CALL LIGHT WITHIN REACH. FALL PRECAUTIONS IN PLACE
--- NOTE | 2018-11-17 13:01 | NUR ---
Nutrition: Calorie count started yesterday due to consult stating that pt was beginning to eat more. Only one menu kept from yesterday. However nsg records show pt ate 10% of meals yesterday and this morning at breakfast only had some honey thick liquids. Continue to recommend usual bolus regimen to meet ~100% of needs for now. Will continue calorie count one more day.
[2018-11-17 14:52] VITALS: BP 140/53
--- NOTE | 2018-11-17 14:53 | NUR ---
FAXED REFERRAL TO [facility] SPOKE WITH [facility] IN ADM. SHE RECEIVED REFERRAL AND CAN ACCEPT PT. AT DISCHARGE. DCP TO FOLLOW.
[2018-11-17 19:30] VITALS: BP 149/65
--- NOTE | 2018-11-18 03:12 | NUR ---
ASSESSMENT: PT REMAIN ALERT AND ORIENT TIMES THREE. DAUGHTER AT THE BEDSIDE UNTIL POST MEDS GIVEN. VSS, AFEBRILE. TURNED EVERY TWO HOURS. NO INSULING GIVEN FOR BS OF 131. PT REQUESTED "SOMETHING TO SLEEP". PT WAS DROWSY BUT EASY TO AROUSE. IT APPEARS THAT PT HAS NOT BE GIVEN THE XANAX THIS ADMISSION. WAS ORIENT TIMES THREE. WILL CONTINUE TO MONITOR.
[2018-11-18 05:34] LABS: ABSOLUTE NEUTROPHILS 6.6 thou/uL (1.4-8.2); BASOPHILS 0.8 % (0.0-2.0); EOSINOPHILS 3.3 % (0.0-3.0); HEMATOCRIT 31.9 % (37.0-47.0); HEMOGLOBIN 10.6 gm/dL (12.0-15.0); LYMPHOCYTES 5.9 % (24.0-44.0); MCHC 33.2 g/dL (28.0-37.0); MCV 87.4 fL (80.0-100.0); MONOCYTES 10.8 % (1.0-8.0); PLATELET COUNT 275 thou/uL (150-400); POLYS 79.2 % (36.0-66.0); RBC 3.64 mil/uL (4.20-5.00); RDW 14.5 % (10.5-14.5); WBC 8.3 thou/uL (4.0-11.0)
[2018-11-18 05:38] LABS: INR 2.8; PROTIME 28.8 Seconds (9.3-11.4)
[2018-11-18 05:42] LABS: CALCIUM 9.5 mg/dL (8.5-10.1); CREATININE 0.5 mg/dL (0.6-1.0); MAGNESIUM 1.5 mg/dL (1.8-2.4); POTASSIUM 3.3 mmol/L (3.5-5.1)
[2018-11-18 08:44] VITALS: BP 149/60
--- NOTE | 2018-11-18 10:03 | NUR ---
ASSUMED CARES AT 0700. PT ORIENTED TO SELF ONLY, CONFUSED AND FOGETFUL. C/O MILD LOWER BACK PAIN, VOLTAREN GEL APPLIED NEEDED. LS CRACKLES, PT COUGHING AND PRODUCING THICK PHLEGM, ORAL CARE COMPLETED AND ORAL SUCTIONING NEEDED. ON RA WITH SATS >95%. PT EATING <10% OF HER MEALS, SCARED OF CHOCKING. DRINKING HONEY THICK K[place] WATER AND ICED TEA, SIPS AT A TIME AND TOLERATING WELL. NUTRITION SUPLEMENTED WITH TUBE FEEDINGS Q4H ORDERED WITH 250CC FLUSHES. PEG TUBE INTACT AND REMAINS PATENT. PT C/O NAUSEA THIS AM AND HAD A GOOD PRODUCTIVE COUGH FOLLOWING THEN STATED THAT THE NAUSEA HAD RESOLVED. PORTAL CATH REMAINS INTACT AND PATENT. PT UP WITH MIN ASSIST, GAITBELT AND WALKER AND TOLERATED WELL. Q1H VISUAL CHECKS. CALL LIGHT WITHIN REACH. FALL PRECAUTIONS IN PLACE
--- NOTE | 2018-11-18 15:42 | NUR ---
I have reviewed the documentation by MANDO HERMOSILLO from 11/18/18 to 11/18/18 and I concur with it. [address]
[2018-11-18 19:17] VITALS: BP 142/53
--- NOTE | 2018-11-19 00:56 | NUR ---
PT ALERT AND ORIENTED X 2. AMB TO BR WITH WALKER AND ASSIST X 1. PEG TUBE PATENT. TRISH FEEDINGS WELL. BLOOD SUGAR 125 AT HS. NO INSULIN NEEDED. PT DENIES PAIN OR DISCOMFORT. TURNED Q2H. BED ALARM ON FOR SAFETY. PT APPEARS TO BE SLEEPING ON HOURLY ROUNDS.
[2018-11-19 05:15] LABS: ABSOLUTE NEUTROPHILS 6.9 thou/uL (1.4-8.2); BASOPHILS 0.6 % (0.0-2.0); EOSINOPHILS 3.5 % (0.0-3.0); HEMATOCRIT 30.6 % (37.0-47.0); HEMOGLOBIN 10.4 gm/dL (12.0-15.0); LYMPHOCYTES 4.8 % (24.0-44.0); MCH 29.4 pg (26.0-34.0); MCV 86.5 fL (80.0-100.0); PLATELET COUNT 268 thou/uL (150-400); POLYS 81.1 % (36.0-66.0); RBC 3.54 mil/uL (4.20-5.00); RDW 14.7 % (10.5-14.5); WBC 8.5 thou/uL (4.0-11.0)
[2018-11-19 05:26] LABS: INR 2.2; PROTIME 22.4 Seconds (9.3-11.4)
[2018-11-19 05:39] LABS: CALCIUM 9.8 mg/dL (8.5-10.1); CREATININE 0.6 mg/dL (0.6-1.0); MAGNESIUM 1.4 mg/dL (1.8-2.4); POTASSIUM 3.3 mmol/L (3.5-5.1)
[2018-11-19 07:45] VITALS: BP 151/83
--- NOTE | 2018-11-19 15:03 | NUR ---
ASSUMED CARES AT 0800. REPORTS DIDN'T SLEEP WELL LAST NIGTH. ALERT AND ORIENTED X3, FORGEFUL.PT C/O MILD LOWER BACK PAIN, VOLTAREN GEL APPLIED NEEDED. CRACKLES, PT COUGHING AND PRODUCING THICK PHLEGM, ORAL CARE COMPLETED AND ORAL SUCTIONING NEEDED. UP TO DINNING ROOM PT EATING <10% OF HER MEALS. DRINKING HONEY THICK BURNS [place] WATER AND ICED TEA, SIPS AT A TIME AND TOLERATING WELL. NUTRITION SUPLEMENTED WITH TUBE FEEDINGS Q4H ORDERED WITH 250CC FLUSHES. PEG TUBE INTACT AND REMAINS PATENT. PT C/O NAUSEA THIS AM. BUT IT WENT AWAY. WILL ASK FOR PRN SL ZOFRAN. PORTAL CATH REMAINS INTACT AND PATENT. PT UP WITH MIN ASSIST, GAITBELT AND WALKER AND TOLERATED WELL. HAD BM THIS AM. VSS, LABS REVIEWED. K 3.3 AND MG 1.4, WILL NOTIFY DOCTOR. PT SAID SHE HAS PESSARY AND HAS APPOINTMENT ON THIS THURSDAY. ENCOURAGED PT TO ASK DAUGHTER TO CALL AND RESCHEDULE AFTER TUES CONFERENCE. Q1H VISUAL CHECKS. CALL LIGHT WITHIN REACH. FALL PRECAUTIONS IN PLACE. PT IS RESTING IN BED AT THIS MOMENT. WILL CONTINUE TO MONITOR. NOTIFIED DR. WILKINSON WHO IS ROUNDING ON PT NOW.
--- NOTE | 2018-11-19 15:13 | NUR ---
I have reviewed the documentation by MANDO HERMOSILLO from 11/19/18 to 11/19/18 and I concur with it. [address]
[2018-11-19 20:32] VITALS: BP 172/78
--- NOTE | 2018-11-20 03:01 | NUR ---
Assumed care of pt at 1915. Pt alert and oriented x4. Denies pain or dypsnea. c/o nausea after tube feeding and meds given, refused offer of zofran. Ambulates to bathroom with assist of one using gait belt and walker. Has appeared to be sleeping when checked on hourly rounds. Fall precautions in place.
[2018-11-20 07:30] VITALS: BP 179/76
[2018-11-20 07:58] LABS: CALCIUM 10.3 mg/dL (8.5-10.1); CREATININE 0.7 mg/dL (0.6-1.0); MAGNESIUM 1.4 mg/dL (1.8-2.4); POTASSIUM 3.4 mmol/L (3.5-5.1)
[2018-11-20 08:02] LABS: INR 1.8; PROTIME 18.5 Seconds (9.3-11.4)
--- NOTE | 2018-11-20 11:57 | NUR ---
ASSUMED CARES AT 0700. PT HAD JUST HAD EMESIS AND WAS STILL C/O NAUSEA. DENIES PAIN. BP ELEVATED THIS AM, BP LOWERING MEDS ADMINISTERED. ZOFRAN IV ADMINISTERED AND PT VERBALISED IMPROVEMENT. ATE 5% OF HER BREAKFAST, TUBE FEEDINGS DONE ORDERED AND TOLERATED WITH 250CC FLUSHES. NO RESIDUAL NOTED. PEG TUBE REMAINS INTACT AND PATENT. PT CONTINUES TO HAVE REDNESS AROUND SACRAL REGION, CREAM APPLIED AND PT REPOSITIONED Q2H. PORTAL CATH REMAINS ACCESSED, INTACT AND PATENT. PT UP WITH 1 PERSON MIN ASSIST GAITBELT WALKER AND TOLERATED WELL. Q1H VISUAL CHECKS. CALL LIGHT WITHIN REACH. FALL PRECAUTIONS IN PLACE
[2018-11-20 19:30] VITALS: BP 139/50
--- NOTE | 2018-11-21 02:44 | NUR ---
assumed care at approx 1900 evening 11/20. pt lying in bed with head of bed elevated at change of shift. daughter at bedside supportive of pts care. g tube in place and meds crushed and given with tube feeding and h20 flush at hs. pt denies n/v. pt assisted up to bathroom to void several times this evening. pt now back to bed appears to be sleeping soundly with hourly rounding checks. bed alarm on and call light in reach. will continue to monitor.
[2018-11-21 05:31] LABS: INR 1.9; PROTIME 19.7 Seconds (9.3-11.4)
--- NOTE | 2018-11-21 10:07 | NUR ---
ASSUMED CARE AT 0715.PATIENT IS ALERT AND ORIENTED.PATIENT HAS SOME INCONTIENCE OF STOOL.BRIEF IN PLACE.ON THICKING LIQUIDS.TAKES MEDICATION THROUGH PEG TUBE,CRUSHED OR WITH APPLESAUCE.TUBEFEEDINGS ARE GIVEN WITH WATER FLUSHES.PATIENT HAS SOME COMPLAINS OF NAUSEA, WILL GIVE MEDICTAION BEFORE MEAL.CALL LIGHT, PHONE, AND PERSONAL BELONGINGS ARE IN PLACE.
[2018-11-21 15:52] VITALS: BP 151/69
[2018-11-21 19:39] VITALS: BP 153/61
--- NOTE | 2018-11-22 04:23 | NUR ---
PT AMBULATING TO BATHROOM WITH GAIT BELT, WALKER AND ASSIST X1 AND IS TOLERATING FAIR. DENIES PAIN. HAD SOME COMPLAINTS OF NAUSEA EARLY IN SHIFT--BEDTIME FEEDING HELD. RESTING COMFORTABLY. NO NEEDS VOICED. CALL LIGHT WITHIN REACH. WILL CONTINUE TO PROVIDE FREQUENT OBSERVATION.
[2018-11-22 05:54] LABS: INR 1.8; PROTIME 18.7 Seconds (9.3-11.4)
[2018-11-22 07:30] VITALS: BP 139/74
--- NOTE | 2018-11-22 16:21 | NUR ---
ASSUMED CARES AT 0800. REPORTS DIDN'T SLEEP WELL LAST NIGTH. ALERT AND ORIENTED X3, FORGEFUL. FEELS TIRED, SLEEPY AND WEAK THIS AM, PT IS FLAT. LOOKS DEPRESSED. NOTIFIED ANEUDY, OBTAINED ORDER FOR REMERON FOR TONIGHT TO HELP WITH DEPRESSION, APPETITE AND SLEEPY. PT C/O MILD LOWER BACK PAIN, VOLTAREN GEL APPLIED AND PRN TYLENOL GIVEN. STILL HAS WEAK COUGH. LUNG SOUNDS CLEAR DIMINISHED. COUGH PRN MED GIVEN. STARTED ON CLARITIN FOR SINUSITIS. XRAY FOLLOW UP SHOWS IMPROVEMENT BILATERAL UPPER LOBE PNA. FAINT INFILTRATION REMAINS. ORAL CARE COMPLETED AND ORAL SUCTIONING NEEDED. UP TO DINNING ROOM PT EATING <10% OF HER MEALS. DRINKING HONEY THICK [place] WATER AND ICED TEA, SIPS AT A TIME AND TOLERATING WELL. NUTRITION SUPLEMENTED WITH TUBE FEEDINGS Q4H ORDERED WITH 250CC FLUSHES. PEG TUBE INTACT AND REMAINS PATENT. PT C/O NAUSEA THIS AM. PRN ZOFRAN GIVEN. PT UP WITH MIN ASSIST, GAITBELT AND WALKER AND TOLERATED WELL. HAD SMALL UNFORMED SOFT BM THIS AM. Q1H VISUAL CHECKS. CALL LIGHT WITHIN REACH. FALL PRECAUTIONS IN PLACE. PT IS RESTING IN BED AT THIS MOMENT. OFFERED SUPPORTIVE CARE. MEDS GIVEN PER TUBE. DRESSING ON GTUBE CHANGED. SKIN INTACT. WILL CONTINUE TO OFFER SUPPORT AND ENCOURAGEMENT.
[2018-11-22 19:25] VITALS: BP 154/57
--- NOTE | 2018-11-22 19:44 | NUR ---
PT ADMITED FROM 4W TO REHAB ROOM 505 AT 1600. PT IS HERE FOR SICK CELL WITH ANEMIA, HGB 6.6 TODAY. 4W NURSE REPORT THAT DR. HUITRON AWARES NO TRANSFUSSION AT THIS MOMENT UNLESS IF IT BELOW 5.O. PT ADMIT FOR COMPLEXITY WITH GENERAL DEBILITY PT A/OX4. VSS, ATE DINNER, HAS FAIR APPETITE. ON RA. DENIES SOB, N/V. HAS HX OF CLUSTER HEADACHE. RATE HEADACHE 5/10, REFUSES TO TAKE PRN TYLENOL. PATIENT EDUCATED ON UNIT SPECIFIC PRECAUTIONS INCLUDING FALL PRECAUTIONS. DISCUSSED ABOUT REHAB SCHEDULE. FALL PRECAUTIONS IN PLACE. PATIENT VERBALLY AGREED TO FALL PRECAUTIONS. ADMISSION ASSESSMENT COMPLETED. SKIN INTACT, RIGHT HAND AND RIGHT LEG ARE STIFFNESS. ADMISSION ASSESSMENT DONE. OFFERED SUPPORTIVE CARE. ENCOURAGED PT TO VOICE HER NEEDS. FAXED MED LIST TO PHARMACY. HANDOFF TO NIGHT NURSE TO CONTINUE TO FOLLOW UP WITH MEDS AND CALL FOR PHYSICIAN CONSULTS.
--- NOTE | 2018-11-23 03:25 | NUR ---
TOLERATING TUBE FEEDING ISOSOURCE PER G-TUBE WITH NO RESIDUAL. STARTED ON REMERON LAST EVENING AND HAS BEEN SLEEPING WELL AND BEEN ABLE TO GET BACK TO SLEEP AFTER Q2H TURNS ACCOMPLISHED. HOB UP 30 DEGREES FOR AN HOUR AFTER TUBE FEEDING, COUGHING WITH FAIR TO [employer]
[2018-11-23 06:02] LABS: ABSOLUTE NEUTROPHILS 8.4 thou/uL (1.4-8.2); BASOPHILS 0.5 % (0.0-2.0); EOSINOPHILS 4.9 % (0.0-3.0); HEMATOCRIT 32.2 % (37.0-47.0); HEMOGLOBIN 10.7 gm/dL (12.0-15.0); LYMPHOCYTES 9.1 % (24.0-44.0); MCH 28.4 pg (26.0-34.0); MCHC 33.1 g/dL (28.0-37.0); MCV 85.8 fL (80.0-100.0); MONOCYTES 9.2 % (1.0-8.0); PLATELET COUNT 282 thou/uL (150-400); POLYS 76.3 % (36.0-66.0); RBC 3.76 mil/uL (4.20-5.00)
[2018-11-23 06:13] LABS: INR 2.5; PROTIME 25.7 Seconds (9.3-11.4)
[2018-11-23 06:22] LABS: CREATININE 0.8 mg/dL (0.6-1.0); MAGNESIUM 1.6 mg/dL (1.8-2.4); POTASSIUM 3.6 mmol/L (3.5-5.1)
[2018-11-23 07:55] VITALS: BP 123/38
--- NOTE | 2018-11-23 11:21 | H ---
[facility] [address] HISTORY AND PHYSICAL Name: SYLVIA BLANCO Room #: 503-P ADM IN .R.#: [id number] Admission: 11/15/18 ������������������ Attend Phys: North Martinez MD Discharge: ������������������ Date of : 38 Report #: [id number] THIS REPORT FOR: //name// CC: North Martinez [facility] physician/PCP DATE OF SERVICE: 11/15/2018 HISTORY OF PRESENT ILLNESS: This is a 78-year-old female who was admitted to the hospital with recurrent urinary tract infection. She was evaluated by Infectious Disease and started on IV antibiotics. She was also noted to have electrolyte abnormalities that required correction. The patient has history of throat cancer for which she finished chemo and radiation approximately 2 months ago. She had a PEG tube placed prior to that and at home does bolus tube feedings. She had worked with home health speech therapy and was cleared to take in oral food and water with no restriction. However, the patient was very scared about choking episodes and rarely if ever takes anything in by mouth. Due to her generalized debility, we are admitting to acute inpatient rehab for physical, occupational and speech therapies. Her recent video swallow with speech therapy recommended honey thickened liquids with pureed solids as she was noted to be aspirating on nectar and thin liquids. Today, she denies any chest pain or shortness of air. She does have an occasional cough. She reports her appetite is a little better and I did note that she was drinking liquids prior to our visit. She denies any abdominal pain, nausea or constipation. She denies trouble with her PEG site. She denies dysuria. She denies any leg swelling. She denies any skin abnormalities. PAST MEDICAL HISTORY: Hypertension, anxiety, atrial fibrillation, TIA x 3, cataract surgery, history of cardiac catheterization, throat cancer status post treatment, history of OH, atherosclerotic disease of the abdominal aorta, supernumerary spleen with calcified granulomas. HABITS: The patient quit smoking tobacco products over 1 year ago. Alcohol on social occasions. No illicit drug use. SOCIAL HISTORY: The patient has been living with her daughter and son-in-law since 06/2018 when she started treatment for her cancer. Prior to cancer treatment, she was living independently at home alone at her daughter's house. She was independent with dressing. The daughter assisted with her showers. The daughter provides the IADLs. She has a single-point cane and front-wheel walker in the home. She denies any fall history. Daughter reports no premorbid trouble with memory. ALLERGIES: PREDNISONE and SULFA. CURRENT MEDICATIONS: Protonix 20 mg daily, hydralazine 10 mg q.[address] [place] [address] HISTORY AND PHYSICAL Name: SYLVIA BLANCO Shobha Room #: 503-P [facility] IN M.R.#: [id number] Admission: 11/15/18 ������������������ Attend Phys: North Martinez MD Discharge: ������������������ Date of : 39 Report #: [id number] Augmentin 500 mg twice a day, losartan 100 mg daily, lactobacillus 1 capsule daily, omeprazole 20 mg daily per tube, Humalog a.c. and at bedtime subQ sliding scale, Colace 100 mg twice a day per tube, Cardizem 240 mg twice a day, melatonin 5 mg daily, warfarin 4 mg daily, Tylenol 650 q.4h p.r.n., Xanax 0.5 mg q.8 hours p.r.n. CODE STATUS: Full code. REVIEW OF SYSTEMS: Remainder of her 14-point review of systems is negative except as listed in HPI. PHYSICAL EXAMINATION: VITAL SIGNS: BP 118/57, pulse of 86, temperature 97.9, O2 sat 97% on room air. GENERAL: She is awake, alert. She is oriented x 3. She does not seem to remember me from prior visit. HEENT: Head is normocephalic. Eyes: EOMs are intact. No icterus. ENT: No sinus tenderness, no pharyngitis. NECK: No lymphadenopathy. CARDIAC: S1, S2 intact. CHEST: She does have some crackles in her bilateral upper lobes, bilateral lower lobes appear diminished. I do not appreciate any significant crackle. ABDOMEN: Bowel sounds are positive, soft, nontender, nondistended. GENITOURINARY: No CVA tenderness. EXTREMITIES: She has no pedal edema. Functional range of motion of bilateral upper and lower extremities. She has poor collator hand strength bilaterally. Upper extremity strength grossly 3/5. She is able to lift bilateral lower extremities antigravity off the bed with negative Homans sign bilaterally. She is sit to stand with min assist, min assist to ambulate 7 feet with a front wheel walker. Lower extremity dressing is mod assist. Bathing is mod assist. NEUROLOGIC: Gross sensation appears intact. No facial droop. Her speech is difficult to comprehend but she is able to follow commands. She does have slow verbal responses. SKIN: Warm, dry and intact. PSYCHIATRIC: Flat affect. ASSESSMENT: 1. Medical complexity with generalized debilitation. 2. Dysphagia. 3. Recurrent urinary tract infection. 4. History of throat cancer, status post chemo and radiation. 5. Premorbid PEG tube with feedings at home. 6. Atrial fibrillation, on chronic anticoagulation. 7. Protein calorie malnutrition. 8. Electrolyte abnormalities including hypokalemia and hypomagnesemia. 9. Hypertension. [facility] [address] [place] [address] HISTORY AND PHYSICAL Name: SYLVIA BLANCO Room #: 503-P ADM IN ..#: [id number] Admission: 11/15/18 ������������������ Attend Phys: North Martinez MD Discharge: ������������������ Date of : 39 Report #: [id number] PLAN: The patient has been admitted to acute inpatient rehab for physical, occupational and speech therapies. She will have a team conference today, Thursday, on 11/16/2018. She will continue to be followed by hospitalist services and Infectious Disease consultants along with Geriatrics. Social work services consulted for discharge planning needs. Pharmacy is managing her INR, it is therapeutic at 2.2 today. She will continue with her current Coumadin dosing. Please see extensive orders. ��������������������������������������������� <ELECTRONICALLY SIGNED> ���������������������������������������� By: MAGO Loza ��������������������������������������������� 11/23/18 [id number] MAGO Loza /nt
--- NOTE | 2018-11-23 13:17 | NUR ---
team meeting, recommends: dc 22nd with [facility] (pt,ot,st,nursing,bath aid, sw), will need medication management, bills, and 24hr initial supervision. cont with peg bolus feedings.
[2018-11-23 14:28] LABS: URINE BILIRUBIN NEGATIVE (Negative); URINE BLOOD NEGATIVE (Negative); URINE CLARITY CLEAR; URINE COLOR YELLOW; URINE GLUCOSE-RANDOM* NEGATIVE (Negative); URINE KETONES NEGATIVE (Negative); URINE NITRITE-REFLEX NEGATIVE (Negative); URINE PROTEIN (DIPSTICK) TRACE (Negative); URINE UROBILINOGEN 0.2 E.U./dl (0.2-1.0)
[2018-11-23 14:32] LABS: URINE LEUKOCYTES-REFLEX 2+ (Negative)
[2018-11-23 14:37] LABS: SQUAMOUS 0-3 Few /LPF (0-3)
[2018-11-23 14:38] LABS: BACTERIA-REFLEX 1-9 Few /HPF (None Seen); CASTS None Seen /LPF (None Seen); CRYSTALS None Seen /LPF (None Seen); URINE RBC None Seen /HPF (0-2)
--- NOTE | 2018-11-23 17:50 | NUR ---
PER PT'S DAUGHTER, SHE WORKS IN THE DAYTIME AND HER WILL BE GIVING SUPERVISION AT HOME WHILE SHE IS AT WORK. THE PATIENT IS CONCERNED ABOUT TOILETING, AND IS VERY UNCOMFORATLE WITH THE THOUGHT OF HER SON IN LAW ASSISTING WITH TOILETING NEEDS. DAUGHTER DELROY REQUESTED THAT THERE BE AN EMPHASIS PUT ON TOILETING NEEDS, AND THAT SHE BE ABLE TO TO THIS ON HER OWN BEFORE SHE GOES HOME. THIS WAS PASSED ON TO THE RN TODAY TO FOCUS ON THIS WHILE GIVING CARE.
--- NOTE | 2018-11-23 18:28 | NUR ---
ASSUME PT CARE AT 0700. PT REPORTED HAD GOOD SLEEP BUT WAS DROWSY, HAS SLURRED SPEECH AND TIRED THIS AM. OT AND PT NOTICED PT MORE WEAK THIS AM. SHE HAD BOTH REMERON AND MELATONIN LAST NIGHT. SHE HAS LITTLE MORE APPETITE TODAY. ATE 10% FOR BREAKFAST AND LUNCH D/T SLEEPINESS, BUT MORE ALERT AND C/O HUNGRY AT DINNER TIME. UP TO DINNING ROOM FOR MEALS AND ATE 20% DINNER. PT C/O BACK PAIN 5/10, VOLATEREN GEL APPLIED AND PRN TYLENOL GIVEN. MEDS GIVEN THROUGH GTUBE. GTUBE SITE INTACT AND PATENT. IV TEAM CHECK PORT CATH TODAY, PATENT AND INTACT. PT UP MIN TO MOD ASSIST TO BATHROOM. HAD SMALL BM LAST NIGHT.BS HYPOACTIVE. C/O STOMACH DISCOMFORT. PRN COLACE LIQUID GIVEN THROUGH GTUBE. OFFERED SUPPORTIVE CARE. ENCOURAGED PT TO VOICE HER NEEDS. FEEDING BOLUS 3X WITH WATER FLUSHING ORDERED. VSS, LAB REVIEWED. CHECKED FRENQUENTLY FOR NEEDS AND SAFETY. WILL GIVE REPORT TO NIGHT NURSE TO CONTINUE TO MONITOR S/E OF REMERON.
[2018-11-23 19:10] VITALS: BP 146/70
--- NOTE | 2018-11-24 01:38 | NUR ---
assumed care at approx 1900 evening 11/23. pt lying in bed with head of bed elevated at change of shift resting and visiting with family at bedside. pt awake, alert, somewhat forgetful and confused at times asking about Remeron med. pt reassured about med. daughter also here at bedtime and very supportive of pt with encouragement. pt appears to be sleeping soundly. bed alarm on and call light in reach. will continue to monitor.
[2018-11-24 07:42] LABS: INR 4.5; PROTIME 46.8 Seconds (9.3-11.4)
[2018-11-24 08:10] VITALS: BP 190/85
[2018-11-24 10:02] VITALS: BP 165/86
[2018-11-24 10:03] VITALS: BP 155/56
--- NOTE | 2018-11-24 10:06 | NUR ---
cm left message with daughter rt dcp
[2018-11-24 10:53] LABS: HEMATOCRIT 28.5 % (37.0-47.0); HEMOGLOBIN 9.7 gm/dL (12.0-15.0); MCH 29.3 pg (26.0-34.0); MCHC 34.1 g/dL (28.0-37.0); RBC 3.31 mil/uL (4.20-5.00); RDW 15.1 % (10.5-14.5); WBC 8.9 thou/uL (4.0-11.0)
[2018-11-24 10:56] LABS: CALCIUM 9.7 mg/dL (8.5-10.1); CREATININE 0.6 mg/dL (0.6-1.0); POTASSIUM 3.7 mmol/L (3.5-5.1)
--- NOTE | 2018-11-24 15:53 | NUR ---
Patient participated in community reintegration on 11/24/18 with OT. Refer to documentation by OT.
--- NOTE | 2018-11-24 16:26 | NUR ---
ASSUMED CARES AT 0700. PT VERY LETHARGIC, ORIENTED TO SELF ONLY. C/O NAUSEA AND LOWER ABDOMINAL PAIN, CT SCAN ORDERED AND NEW ORDERS RECEIVED. AM FEEDING DELAYED FOR 1HR UNTIL NAUSEA RESOLVED, ZOFRAN IV ADMINISTERED. PT SLEEPY BETWEEN THERAPIES. PEG TUBE FEEDINGS COMPLETED WITH 250CC FLUSHES ORDERED. PEG TUBE REMAINS PATENT AND INTACT. PORTAL CATH ON CHEST LEFT REMAINS INTACT AND PATENT. SKIN REMAINS INTACT. Q2H TURNS. Q1H TURNS. FALL PRECAUTIONS IN PLACE. CALL LIGHT WITHIN REACH.
[2018-11-24 17:09] VITALS: BP 178/95
[2018-11-24 17:10] VITALS: BP 130/39
[2018-11-24 17:14] LABS: BE(vivo) 4.7 mmol/L (-2 to +3); HCO3 26.7 mmol/L (22.0-26.0); PCO2 30.3 mmHg (35.0-45.0); PO2 58.2 mmHg (80.0-100.0); pH 7.563 (7.360-7.450); sO2 93.8 % (92.0-98.0)
[2018-11-24 17:41] LABS: ABSOLUTE NEUTROPHILS 8.2 thou/uL (1.4-8.2); BASOPHILS 0.4 % (0.0-2.0); EOSINOPHILS 0.5 % (0.0-3.0); HEMATOCRIT 29.7 % (37.0-47.0); HEMOGLOBIN 10.1 gm/dL (12.0-15.0); LYMPHOCYTES 6.9 % (24.0-44.0); MCH 28.8 pg (26.0-34.0); MCV 84.9 fL (80.0-100.0); MONOCYTES 7.3 % (1.0-8.0); PLATELET COUNT 255 thou/uL (150-400); POLYS 84.9 % (36.0-66.0); RBC 3.49 mil/uL (4.20-5.00); RDW 15.1 % (10.5-14.5); WBC 9.6 thou/uL (4.0-11.0)
[2018-11-24 19:55] VITALS: BP 135/42
--- NOTE | 2018-11-25 01:39 | NUR ---
DROWSY BUT WAKES UP AND ABLE TO INTERACT, SPEECH A LITTLE HARD TO UNDERSTAND, DAUGHTER AT BEDSIDE AND STAYED TONIGHT, AFEBRILE THIS SHIFT, TURNED/REPOSITIONED EVERY 2 HOURS, CONTINENT OF B/B, ASSISTED TO TOILET WITH ASSIST, NPO, ALL MEDS THRU PEG TUBE, PT TOLERATE TUBE FEEDING AND WATER FLUSH, RESIDUAL WAS 10 WHEN CHECKED, CONTINUE WITH IV ANTIBIOTICS, ORAL CARE DONE, LESS COUGHING NOTED TONIGHT, HOB MAINTAINED ELEVATED WHEN BOLUS FEEDING WAS BEING GIVEN, DAUGHTER WAS ASKING HOW PT CAN ASPIRATE IF SHE IS NOT TAKING ANYTHING BY MOUTH, ABLE TO ANSWER HER QUESTION AND WAS OK, HOURLY ROUNFING, TURNED Q 2, MONITORED.
--- NOTE | 2018-11-25 05:05 | NUR ---
pt c.o sob after getting up to use the commode, 2 l per nc oxygen applied, sat with oxygen is 96%.
[2018-11-25 06:36] LABS: HEMATOCRIT 21.1 % (37.0-47.0); MCHC 33.6 g/dL (28.0-37.0); MCV 86.3 fL (80.0-100.0); RBC 2.45 mil/uL (4.20-5.00); WBC 13.1 thou/uL (4.0-11.0)
[2018-11-25 06:40] LABS: HEMOGLOBIN 7.1 gm/dL (12.0-15.0)
[2018-11-25 06:53] LABS: ALBUMIN 2.3 g/dL (3.4-5.0); CALCIUM 9.8 mg/dL (8.5-10.1); CREATININE 0.8 mg/dL (0.6-1.0); POTASSIUM 4.1 mmol/L (3.5-5.1); TOTAL BILIRUBIN 0.5 mg/dL (<0.1-1.0); TOTAL PROTEIN 6.7 g/dL (6.4-8.2)
[2018-11-25 06:55] LABS: INR 3.4; PROTIME 35.4 Seconds (9.3-11.4)
[2018-11-25 07:28] VITALS: BP 129/49
[2018-11-25 08:30] LABS: HEMATOCRIT 26.2 % (37.0-47.0); HEMOGLOBIN 8.9 gm/dL (12.0-15.0)
--- NOTE | 2018-11-25 12:12 | NUR ---
cm visited with pt and daughter kofi at bedside prior to los today. snf list provided for choices. education on hh, private duty and possible if wanted information on palliative vs hospice. " [facility], i will let you know what facility we pick"/daughter kofi. pt cont working with rt to complete btx. discussed during los for dcp, pt not needing to be transferred to inpt, will cont following for as needed for dc needs.
--- NOTE | 2018-11-25 15:27 | NUR ---
PT. WILL NOT BE DISCHARGING HOME WITH HH NOTIFIED [facility] SPOKE WITH AMARI THAT PT. [place] GO [place]. [facility] TO FOLLOW.
--- NOTE | 2018-11-25 17:50 | NUR ---
PT ALERT AND ORIENTED TIMES THREE BUT LETHARGIC THIS MORNING. VSS, PT DENIES PAIN/SOA. PT TOLERATES FEEDINGS PER PEG TUBE. PT WORKED FAIR WITH PT THIS AFTERNOON. PT WAS UP TO BSC THIS AFTERNOON. PT DAUGHTER AT BEDSIDE FOR MOST OF THE DAY. WILL CONTINUE TO MONITOR.
[2018-11-25 20:31] VITALS: BP 148/41
--- NOTE | 2018-11-26 03:20 | NUR ---
ASSESSMENT: PT REMAIN ALERT AND CONFUSED TO TIME, PLACE AND SITUATION. DAUGHTER AND SON AT THE BEDSIDE DURING THE NIGHT. PT IS NOT EASY TO REORIENT. DOES GET OOB TO THE BSC WITH ONE ASSIST. BEGINNING TEMP WAS 100.2, POST TYLENOL TEMP WAS 98.9 TWO HOURS LATER. PT'S FAMILY HAS BEEN TOLD THAT PT IS STRICT I&O'S YET THEY CONTINUE TO GIVE PT WATER SATURATED MOUTH SWABS. PEG TUBE INTACT, FEEDING GIVEN WITHOUT DFIFFICULTY. INSULIN NOT GIVEN FOR BS OF 178, FAMILY REQUESTED. UP TO BSC 6 TIMES. DID NOT HAVE BM. LEFT CHEST PORT-A-CATH INTACT. WILL CONTINUE TO MONITOR.
[2018-11-26 05:56] LABS: INR 2.4; PROTIME 25.4 Seconds (9.3-11.4)
--- NOTE | 2018-11-26 07:19 | NUR ---
ASSESSMENT: PT'S DAUGHTER AND SON STAYED IN THE ROOM DURING THE NIGHT. BOTH SLEPT DURING THE NIGHT WHILE THIS RN [facility], TURNED PT AND HUNG IV ANTIBIOTICS. AT APPROXIMATELY 0545 THE DAUGHTER APPROACHED THIS RN AND REQUESTED THAT SHE HAVE A VALIUM TO "CALM" HER DOWN. AFTER BEING TOLD THAT ALL ANTI-ANXIETY MEDS HAVE BEEN DC'D SHE THEN REQUESTED SOMETHING FOR PAIN. IT WAS NOT TIME FOR TYLENOL TO BE GIVEN. THE DAUGHTER INSISTED THAT SHE GET SOMETHING FOR PAIN. [employer]PER[employer]OR [employer] TESTING CHASIDY WAS NOTIFIED AND ORDERED A NARCO PRN. THE PT WAS NOT IN DISTRESS, LUNG SOUNDS DID NOT DRASTICALLY CHANGE FROM EARLIER ASSESSMENT. O2 SATS WERE 94% AT THE TIME ON 2 LITERS OF OXYGEN. THE DAUGHTER HAD TAKEN THE NC OFF AND BENEDICTO THE RT INFORMED HER THAT IT WAS OK TO KEEP THE OXYGEN OFF FOR AWHILE, " LONG SHE IS SATING WELL OR > 90-92%. THE DAUGHTER FREQUENTLY GIVES THE PT "WET" MOUTH SWABS AND WAS INFORMED TWICE THAT THE PT IS SEVERE NPO. EVERY TIME UPON ENTERING THE ROOM, THE DAUGHTER IS SWABBING THE PT'S MOUTH. THE DAUGHTER STATED THAT THE PT NEEDS TO BE COMFORTABLE AND PAIN FREE. WHEN ASKED IF IT WAS A CONCERN TO TRANSFER THE PT TO A DIFFERENT UNIT, THE DAUGHTER STATE THAT IT WAS BUT IT WAS DECIDED NOT TO. THE PT TOLD THE DAUGHTER THAT SHE FELT THAT SHE WAS GOING TO . POOR PROGRESS TOWARDS DC GOALS, WILL CONTINUE TO MONITOR. THE PT "WET" MOUTH SWABS
[2018-11-26 08:27] LABS: HEMATOCRIT 25.3 % (37.0-47.0); HEMOGLOBIN 8.4 gm/dL (12.0-15.0); MCH 28.8 pg (26.0-34.0); MCHC 33.2 g/dL (28.0-37.0); MCV 86.7 fL (80.0-100.0); RBC 2.91 mil/uL (4.20-5.00); RDW 15.2 % (10.5-14.5); WBC 7.7 thou/uL (4.0-11.0)
[2018-11-26 08:32] LABS: CALCIUM 9.4 mg/dL (8.5-10.1); CREATININE 0.6 mg/dL (0.6-1.0); POTASSIUM 3.5 mmol/L (3.5-5.1)
[2018-11-26 09:01] VITALS: BP 128/44
--- NOTE | 2018-11-26 15:56 | NUR ---
ASSUMED CARES AT 0700. PT VERY SLEEPY AND LETHARGIC, ORIENTED TO SELF ONLY. C/O RIGHT FLANK AND LOWER ABDOMINAL PAIN/ DISCOMFORT. HOSPITALIST NOTIFIED AND ORDERS RECEIVED. KUB ORDERED. BLADDER SCAN PERFORMED SINCE PT HAD NOT VOIDED ALL MORNING, 999+, PT VOIDED 100CC, BLADDER SCAN AGAIN SHOWED 908CC, STRAIGHT CATHETERISATION YIELDED 1100CC. PEG TUBE REMAINS INTACT AND PATENT, NO RESIDUAL NOTED WITH THE FEEDINGS, FEEDINGS COMPLETED ORDERED WITH 250CC FLUSHES. ALL MEDS CRUSHED AND ADMINISTERED PER PEG TUBE. PORTAL CATH REMAINS INTACT AND PATENT, SLUGGISH BLOOD FLOW (UNABLE TO DRAW ENOUGH BLOOD FOR LAB). PT REMAINS NPO, ORAL CARES COMPLETED NEEDED. PT REMAINS ON 2L OXYGEN VIA NC, LS COARSE, PT CONTINUES TO HAVE A THICK PRODUCTIVE COUGH. UNABLE TO PARTICIPATE THIS AM WITH THERAPY, DID MINIMAL THERAPY THIS AFTERNOON AND TOLERATED WELL. POSITION Q2H. Q1H VISUAL CHECKS. CALL LIGHT WITHIN REACH. FALL PRECAUTIONS IN PLACE
[2018-11-26 17:07] VITALS: BP 167/65
[2018-11-26 19:50] VITALS: BP 165/81
--- NOTE | 2018-11-27 04:17 | NUR ---
ASSESSMENT: WAS DROWSY, EASY TO AROUSE. COUGH BETTER, LUNGS SOUND BETTER THAN LAST NIGHT. DAUGHTER AT THE BEDSIDE. TYLENOL GIVEN FOR PAIN. BLADDER SCANNED 480. 240 RESIDUAL. UP TO BSC SLOWLY. TURNED Q 2HOURS. FEEDINGS DONE WITH A PROBLEM, PEG TUBE PATENT. WILL CONTINUE TO MONITOR. POOR PROGRESS TOWARDS DC GOALS. WILL CONTINUE TO MONITOR.
[2018-11-27 07:13] LABS: INR 1.5; PROTIME 15.7 Seconds (9.3-11.4)
[2018-11-27 08:04] LABS: BE(vivo) 2.3 mmol/L (-2 to +3); HCO3 25.2 mmol/L (22.0-26.0); PCO2 33.1 mmHg (35.0-45.0); PO2 61.3 mmHg (80.0-100.0); sO2 93.6 % (92.0-98.0)
--- NOTE | 2018-11-27 11:06 | NUR ---
ASSUMED CARES AT 0700. PT WHISPERING UNABLE T0 MAKE SOUNDS, C/O DRY/SORE THROAT, DRY PHLEGM VISIBLE AT THE BACK OF HER TONGUE. ORAL SUCTION AND ORAL CARE COMPLETED WHICH RESULTED IN 2 THICK QUARTER SIZE GREYISH DRIED PHLEGM. PT ABLE TO TALK AFTER THIS. CONTINUE ORAL CARES NEEDED. PT HYPERVENTILATING THIS AM, HR ELEVATED 115-125. RECTAL TEMP 101F, HOSPITALIST NOTIFIED AND ORDERS RECEIVED. LS SOUNDS CLEAR, PT CONTINUES TO HAVE A DRY COUGH, SATS >95% ON 3L O2. ABDOMEN SLIGHTLY DISTENDED, BS ACTIVE *4, PT VOIDING REGULARLY NO RETENTION NOTED. REPOSITIONED Q2H. TUBE FEEDINGS COMPLETED SCHEDULED WITH 250CC FLUSHES. ALL MEDS ADMINISTERED PER PEG TUBE. PT REMAINS NPO PER ORDER. Q1H VISUAL CHECKS. CALL LIGHT WITHIN REACH. FALL PRECAUTIONS IN PLACE
[2018-11-27 14:49] LABS: URINE BILIRUBIN NEGATIVE (Negative); URINE BLOOD NEGATIVE (Negative); URINE CLARITY CLEAR; URINE COLOR YELLOW; URINE GLUCOSE-RANDOM* NEGATIVE (Negative); URINE KETONES NEGATIVE (Negative); URINE LEUKOCYTES 2+ (Negative); URINE NITRITE NEGATIVE (Negative); URINE PROTEIN (DIPSTICK) NEGATIVE (Negative); URINE UROBILINOGEN 0.2 E.U./dl (0.2-1.0)
[2018-11-27 15:03] LABS: SQUAMOUS 0-3 Few /LPF (0-3); URINE WBC 6-15 Few /HPF (0-5)
[2018-11-27 15:04] LABS: BACTERIA 1-9 Few /HPF (None Seen); CASTS None Seen /LPF (None Seen); CRYSTALS None Seen /LPF (None Seen); URINE RBC None Seen /HPF (0-2)
[2018-11-27 17:05] VITALS: BP 112/39
[2018-11-27 19:00] VITALS: BP 138/43
[2018-11-28 05:17] LABS: ABSOLUTE NEUTROPHILS 5.6 thou/uL (1.4-8.2); BASOPHILS 0.1 % (0.0-2.0); EOSINOPHILS 4.4 % (0.0-3.0); HEMATOCRIT 23.6 % (37.0-47.0); HEMOGLOBIN 7.8 gm/dL (12.0-15.0); LYMPHOCYTES 5.1 % (24.0-44.0); MCH 27.9 pg (26.0-34.0); MCV 84.6 fL (80.0-100.0); MONOCYTES 11.1 % (1.0-8.0); PLATELET COUNT 219 thou/uL (150-400); POLYS 79.3 % (36.0-66.0); RBC 2.79 mil/uL (4.20-5.00); RDW 15.1 % (10.5-14.5); WBC 7.1 thou/uL (4.0-11.0)
[2018-11-28 05:27] LABS: INR 1.5; PROTIME 16.1 Seconds (9.3-11.4)
[2018-11-28 05:33] LABS: CALCIUM 9.2 mg/dL (8.5-10.1); CREATININE 0.6 mg/dL (0.6-1.0); MAGNESIUM 1.6 mg/dL (1.8-2.4); POTASSIUM 3.5 mmol/L (3.5-5.1)
--- NOTE | 2018-11-28 05:43 | NUR ---
DAUGHTER STAYING OVERNIGHT, MOUTH CARE AND BIOTINE FOR DRY MOUTH. PATIENT IS MPO AND VOIDING APPROX 300 EVERY 3-4 HOURS WHEN SITTING ON BSC, TRANSFER WITH ASSIST OF ONE. COUGH SYRUP AND RT Q4H, CAN OF ISOSOURCE QID, RESIDUAL CHECKS HAVE BEEN 15 CC OR LESS ALL NIGHT. APPRECIATES TYLENOL FOR PAIN. INTERMITTENT CONGESTED COUGH, HOB UP 30 DEGREES, TURNED SIDE TO SIDE, VOLTAREN GEL TO BACK NEEDS TO BE EXPLAINED TO HER EACH TIME. PATIENT FELT WARM AT 0100 AND HAD AN AXIALLARY TEMP 0F 99 DESPITE TYLENOL AND ANTIBIOTICS. STATES THAT SHE HAS HAD LEFT SIDED ABD PAIN FOR 3 MONTHS NOW
[2018-11-28 07:30] VITALS: BP 125/57
--- NOTE | 2018-11-28 11:38 | NUR ---
ASSUMED CARE OF PT AT 0715. PT IS A&OX4. IS SNOQUALMIE. IS ON 3L OF . IS NPO, USING MOUTH SWABS TO CLEAN & MOISTEN MOUTH. HAS WET COUGH. PT HAS PEG TUBE & RECEIVES BOLUS FEEDINGS. IS INCONT TO B&B AT TIMES, BUT IS ABLE TO CALL OUT FOR ASSISTANCE NEEDED. IS TURNED Q2H. DAUGHTER WASHED & DRIED PT HAIR THIS AM. PT APPEARS WEAK. LABS & VITALS REVIEWED IS UP WTH 1 ASSIST, GB TO BSC. FALL PRECAUTIONS & HOURLY ROUNDING MAINTAINED. CALL LIGHT WTHIN REACH. PT HAS LEFT CHEST PORT IN PLACE. WILL CONTINUE TO MONITOR.
--- NOTE | 2018-11-28 19:18 | NUR ---
PT & DAUGHTER REPORTED DIFFICULTY BREATHING. RT WAS CALLED MULTIPLE TIMES FOR BREATHING TREATMENTS. THIS NURSE ALONG WITH RT SUCTIONED PT PRN. DAUGHTER & PT HAVE SHOWN SIGNS OF PANIC THROUHOUT THE DAY. DR. KAUR. PT WAS EDUCATED REGARDING BREATHING. WAS ADMINISTERED XANAX ORDERED. PT STATED, "WHAT DOESN'T ANYONE JUST HELP ME ". THERAPUETIC COMMUNICATION PROVIDED. PT FAMILY IS CURRENTLY AT BEDSIDE. NIGHT NURSE AWARE OF SITUATION.
[2018-11-28 20:58] VITALS: BP 138/51
--- NOTE | 2018-11-29 02:35 | NUR ---
ASSUMED CARE AT APPROX 1900 EVENING 11/28. PT LYING IN BED WITH HEAD OF BED ELEVATED AT CHANGE OF SHIFT. PT MOUTH BREATHING AND SOMEWHAT SHORT OF BREATH WITH DAUGHTER STATING SHE SEES LARGE PLUG OF MUCUS AT THE BACK OF PTS THROAT. ASSISTED PT WITH YANKEUR SUCTION TO REMOVE MUCUS. PT WAS ABLE TO TOLERATE AND STATED IT HELPED. PT NPO. G TUBE IN PLACE AND MEDS CRUSHED AND GIVEN WITH BOLUS FEEDING AND H20 FLUSH. PT GIVEN XANAX EARLIER FOR ANXIETY AND DOES APPEAR TO BE LESS ANXIOUS. PT APPEARS TO BE SLEEPING OFF AND ON. DAUGHTER SLEEPING IN RECLINER IN ROOM. BED ALARM ON AND CALL LIGHT IN REACH. WILL CONTINUE TO MONITOR.
[2018-11-29 05:33] LABS: INR 1.7; PROTIME 17.3 Seconds (9.3-11.4)
[2018-11-29 09:41] VITALS: BP 148/63
[2018-11-29 11:40] LABS: CALCIUM 9.2 mg/dL (8.5-10.1); CREATININE 0.6 mg/dL (0.6-1.0); MAGNESIUM 1.6 mg/dL (1.8-2.4); POTASSIUM 3.4 mmol/L (3.5-5.1)
[2018-11-29 12:01] LABS: HEMATOCRIT 23.8 % (37.0-47.0); HEMOGLOBIN 7.9 gm/dL (12.0-15.0); MCH 28.3 pg (26.0-34.0); MCHC 33.2 g/dL (28.0-37.0); MCV 85.3 fL (80.0-100.0); RBC 2.79 mil/uL (4.20-5.00); RDW 14.9 % (10.5-14.5); WBC 7.8 thou/uL (4.0-11.0)
--- NOTE | 2018-11-29 14:26 | NUR ---
FAXED REFERRAL TO [facility] ON SUNDAY 11/26 F/U WITH CHASIDY IN ADM. SHE RECEIVED REFERRAL AND WILL ACCEPT PT. AT DISCHARGE. DISCHARGE PUT ON HOLD TIL TOMORROW. DCP TO FOLLOW.
--- NOTE | 2018-11-29 15:19 | NUR ---
ASSUMED CARES AT 0700. PT VERY ANXIOUS AND CONFUSED MORE THAN USUAL. NIGHT NOC HAD GIVEN XANAX FOR ANXIETY, PT SEEMED VERY RESTLESS. PT HYPERVENTILATING AND C/O SORE THROAT AND DRY MOUTH, ORAL CARES AND SUCTIONING DONE NEEDED. BREATHING RX Q4H, PT NOW ON FACESHIELD WITH 15L O2. ALL OTHER VITALS REMAINED STABLE. ABDOMEN FIRM AND DISTENDED, KUB SHOWED CONSTIPATION, LAXATIVE ADMINISTERED ORDERED. PT UNABLE TO TOLERATE THERAPY WELL. TUBE FEEDINGS COMPLETED PER ORDER WITH 250CC FLUSHES. ALL MEDS ADMINISTERED PER G-TUBE. FREQUENT VISUAL CHECKS. CALL LIGHT WITHIN REACH. FALL PRECAUTIONS IN PLACE.
[2018-11-29 19:30] VITALS: BP 119/43
[2018-11-29 20:56] VITALS: BP 121/62
--- NOTE | 2018-11-29 23:45 | NUR ---
PT ASSESSMENT COMPLETED AND VSS. MEDS/TF/FLUSHES GIVEN ORDERED AND WELL TOLERATED. RESIDUAL ONLY 20. FALL PRECAUTIONS IN PLACE. SAT WNL ON HYDRATED FACE MASK. BEING FOLLOWED BY RT. DAUGHTER AT BEDSIDE. PT AND DAUGHTER VERY ANXIOUS. PROVIDED MUCH EMOTIONAL SUPPORT. ASST WITH FREQUENT REPOSITION. UP TO BSC WITH ASST. SMALL BM AT HS. SLEEPING. WILL CONTINUE TO MONITOR FREQUENTLY.
[2018-11-30 06:05] LABS: INR 2.3; PROTIME 24.3 Seconds (9.3-11.4)
[2018-11-30 09:15] VITALS: BP 149/55
[2018-11-30] MEDS ORDERED: IPRAT-ALBUT 0.5-3 ML INH (12:13)
[2018-11-30] MEDS ORDERED: AMOXICILLIN 50500 MG PO (12:13)
[2018-11-30] MEDS ORDERED: COUMADIN 2 MG TA2 M1 PO (12:13)
[2018-11-30] MEDS ORDERED: MAGOX 400400 MG PO (12:13)
[2018-11-30] MEDS ORDERED: ROBITUSSIN100 MG/53 PO (12:13)
[2018-11-30] MEDS ORDERED: PROBIOTIC1 EAC1 PO (12:13)
[2018-11-30] MEDS ORDERED: VOLTAREN100 GM TOP (12:13)
[2018-11-30] MEDS ORDERED: LINEZOLID600 MG PO (12:13)
[2018-11-30] MEDS ORDERED: NOVOLOG100 UNIT/1 SUBQ (12:13)
[2018-11-30] MEDS ORDERED: FLOMAX0.4 MG PO (12:13)
[2018-11-30] MEDS ORDERED: ZYRTEC10 M2 PO (12:13)
[2018-11-30 12:36] VITALS: BP 140/53
--- NOTE | 2018-11-30 13:39 | NUR ---
team meeting, cont with dc today to [facility], 1530 transportation. npo with tf. chart copy requested. bedside nurse to call report. dc later rt daughter kofi wants to be here for dc. pt iv abt change to per tube
--- NOTE | 2018-11-30 13:41 | NUR ---
PT. DISCHARGING TODAY TO [facility] FAXED DC ORDERS/SUMMARY TO FACILITY SPOKE WITH CHASIDY IN ADM SHE RECEIVED DC ORDERS AND ARRANGED TRANSPORTATION [facility]IA [facility] FOR 1530 TODAY. NOTIFIED PT'S DTR (DELROY) OF DISCHARGE AND TIME OF TRANSPORT. UNIT NOTIFIED AND CHART COPY PER US. RN TO CALL REPORT TO [phone].
--- NOTE | 2018-11-30 14:12 | NUR ---
PT. RESIDES AT [facility] FAXED CLINICAL UPDATE TO FACILITY SPOKE WITH OSMAR IN ADM. SHE RECEIVED UPDATE. DCP TO FOLLOW.
--- NOTE | 2018-11-30 16:00 | NUR ---
ASSUME PT CARE AT 0700. RECEIVED PT HAD GOOD SLEEP LAST NIGHT. HAD COUPLES GOOD BM LAST NIGHT. FEELS BETTER TODAY. PT WAS IN GOOD SPIRIT. ASSESSMENT COMPLETED AND VSS. MEDS/TF/FLUSHES GIVEN ORDERED AND WELL TOLERATED. RESIDUAL ONLY 50. FALL PRECAUTIONS IN PLACE. SAT WNL ON HYDRATED FACE MASK. BEING FOLLOWED BY RT. PT DISCHARGES TO [facility]. CALLED AND GAVE REPORT TO ARSEN SONG AT [facility]. HAS FOLLOW CATH INTACT HAD 1000CC YELLOW URINE. PT ANXIOUS ABOUT LIVING, PROVIDED MUCH EMOTIONAL SUPPORT. PT HAS BEEN UP FOR OT/PT AND BSC. HAD 2X CONT BM THIS SHIFT. UP TO BSC WITH ASST. OFFERED SUPPORTIVE CARE, VSS, BS MONITOR, MEDS GIVEN ORDERED. IV TEAM CAME AND DEACTIVE PORT CATH BEFORE DISCHARGE. ABT IV CHANGED TO PO PER DR. JOHNSON BEFORE DISCHARGE. PT LEFT UNIT AT THIS MOMENT WITH ALL HER BELONINGS, DAUGHTER IS WITH PT. HOME MEDS SENT WITH PT.
== END 2018-11-30 16:32 | DRG 177 ==
PROVIDERS: Internal Medicine; Internal Medicine Infectious Disease; Nurse Practitioner; Nurse Practitioner Acute Care; ADMIT Physical Medicine & Rehabilitation
DX: J69.0 Pneumonitis due to inhalation of food and vomit (principal); G92 Toxic encephalopathy; J96.90 Respiratory failure, unspecified, unspecified whether with hypoxia or hypercapnia; N39.0 Urinary tract infection, site not specified; E46 Unspecified protein-calorie malnutrition; D62 Acute posthemorrhagic anemia; D68.9 Coagulation defect, unspecified; M48.56XA Collapsed vertebra, not elsewhere classified, lumbar region, initial encounter for fracture; R53.81 Other malaise; R13.10 Dysphagia, unspecified; E87.8 Other disorders of electrolyte and fluid balance, not elsewhere classified; E83.42 Hypomagnesemia; E87.6 Hypokalemia; I10 Essential (primary) hypertension; F41.9 Anxiety disorder, unspecified; B95.2 Enterococcus as the cause of diseases classified elsewhere; G47.00 Insomnia, unspecified; F43.20 Adjustment disorder, unspecified; K86.9 Disease of pancreas, unspecified; Z66 Do not resuscitate; I48.2 Chronic atrial fibrillation; R33.9 Retention of urine, unspecified; F32.9 Major depressive disorder, single episode, unspecified; G31.84 Mild cognitive impairment of uncertain or unknown etiology; Z60.2 Problems related to living alone; M62.84 Sarcopenia; I69.391 Dysphagia following cerebral infarction; Z79.01 Long term (current) use of anticoagulants; Z85.818 Personal history of malignant neoplasm of other sites of lip, oral cavity, and pharynx; Z92.3 Personal history of irradiation; Z92.21 Personal history of antineoplastic chemotherapy; Z87.891 Personal history of nicotine dependence; Z88.2 Allergy status to sulfonamides; Z88.8 Allergy status to other drugs, medicaments and biological substances; Z79.899 Other long term (current) drug therapy; Z68.21 Body mass index [BMI] 21.0-21.9, adult; Z68.20 Body mass index [BMI] 20.0-20.9, adult; I25.2 Old myocardial infarction; Z93.1 Gastrostomy status
CPT/HCPCS: 10112